=== PATIENT | female | born 1960 | race American Indian/Alaskan Native ===

== ENCOUNTER 2023-11-08 08:53 | Emergency (ER) | payer BC ==
[~2023-11-08] VITALS: Ht 165.1 cm; Wt 129.3 kg
[~2023-11-08 08:53] MED LIST: ACET500 PO; ASPI325EC PO; Abilify2 MG PO; CYCL10 PO; FAMO20 PO; OXYC5 PO; OXYMORPHONE HCL10 M1 PO; VIIBRYD40 MG PO
[2023-11-08 10:57] VITALS: BP 140/72
[2023-11-08 10:59] LABS: Hematocrit 34.5 % (33.0-51.0); Hemoglobin 11.4 g/dL (11.5-16.0); Mean Corpuscular HGB 30.1 pg (26.0-34.0); Mean Corpuscular Volume 91 fL (80-100); Platelet Count 331 K/mm3 (150-400); RDW Coefficient Variation 14.8 % (11.7-14.2); RDW Standard Deviation 49.3 fL (35.1-46.3); Red Blood Cell Count 3.79 M/mm3 (3.80-5.20)
[2023-11-08 11:02] LABS: Source, Urine Clean Catch
[2023-11-08 11:05] LABS: Appearance, Urine Cloudy (Clear); Bilirubin, Urine Neg (Neg); Blood, Urine Neg (Neg); Color, Urine Yellow (P-Yellow); Glucose Qualitative, Urine Neg (Neg); Ketones, Urine Neg (Neg); Leukocyte Esterase, Urine 2+ (Neg); Nitrite, Urine Neg (Neg); Protein, Urine 2+ (Neg); Urobilinogen, Urine NORM (Normal)
[2023-11-08 11:16] LABS: Amorphous Light (0-Heavy); Bacteria Few /hpf; Mucus Heavy (0-Heavy); Squamous Epithelial Cells Many /hpf (Few)
[2023-11-08 11:31] LABS: BAND PERCENT MAN 4 % (0-8); BASOPHILS PERCENT MAN 0 % (0-2); EOSINOPHILS ABSOLUTE MAN 0.42 K/mm3 (0.00-0.68); EOSINOPHILS PERCENT MAN 4 % (0-6); LYMPHOCYTES % ATYPICAL MANUAL 2 % (0-0); LYMPHOCYTES ABSOLUTE MAN 2.01 K/mm3 (0.84-5.20); LYMPHOCYTES PERCENT MAN 17 % (21-46); MONOCYTES ABSOLUTE MAN 0.63 K/mm3 (0.16-1.47); MONOCYTES PERCENT MAN 6 % (4-13); MYELOCYTE PERCENT MAN 1 % (0-0); NEUTROPHILS ABSOLUTE MAN 7.42 K/mm3 (1.96-9.15); SEG NEUTROPHILS PERCENT MAN 66 % (41-73); TOTAL CELLS COUNTED 100
[2023-11-08 11:38] LABS: Albumin, Blood 2.4 g/dL (3.4-5.0); Albumin/Globulin Ratio 0.5 (0.8-1.8); Bilirubin, Total 0.3 mg/dL (0.1-1.0); C-REACTIVE PROTEIN, EXT RANGE 6.64 mg/dL (0.000-0.300); Calcium, Blood 8.1 mg/dL (8.5-10.1); Creatinine, Blood 0.5 mg/dL (0.40-1.00); Globulin, Blood 4.5 g/dL (2.2-4.0); Potassium, Blood 3.9 mmol/L (3.5-5.5); Total Protein, Blood 6.9 g/dL (6.4-8.2)
== END 2023-11-08 13:17 | disposition home or self-care (01) ==
LOC: ER 08:53
PROVIDERS: Physician Assistant
DX: R23.4 Changes in skin texture (principal); L27.0 Generalized skin eruption due to drugs and medicaments taken internally; T45.1X5A Adverse effect of antineoplastic and immunosuppressive drugs, initial encounter; C84.A0 Cutaneous T-cell lymphoma, unspecified, unspecified site; R60.1 Generalized edema; Z91.041 Radiographic dye allergy status; Z88.8 Allergy status to other drugs, medicaments and biological substances; Z79.899 Other long term (current) drug therapy; Z79.82 Long term (current) use of aspirin
CPT/HCPCS: 51798; 80053; 81001; 83880; 85025; 86140; 87077; 87086; 87147; 87186; 93005; 93010; 99283-25

== ENCOUNTER → 2023-11-15 | Outpatient (CLI) | payer BC | END | disposition home or self-care (01) | LOC: LAB SHORT 16:46 | DX: L08.0 Pyoderma (principal) | CPT/HCPCS: 87070; 87077; 87147; 87186; 87205 ==

== ENCOUNTER → 2024-01-10 | Outpatient (CLI) | payer BC | END | disposition home or self-care (01) | LOC: LAB SHORT 12:07 → LAB 12:07 | DX: L08.0 Pyoderma (principal) | CPT/HCPCS: 87070; 87205 ==

== ENCOUNTER 2024-01-19 02:33 | Day surgery (SDC) | payer BC | END 2024-01-19 23:21 | disposition home or self-care (01) | LOC: WOUND 02:33 | DX: L89.893 Pressure ulcer of other site, stage 3 (principal); L89.312 Pressure ulcer of right buttock, stage 2; C84.A5 Cutaneous T-cell lymphoma, unspecified, lymph nodes of inguinal region and lower limb; C84.A1 Cutaneous T-cell lymphoma, unspecified lymph nodes of head, face, and neck; L97.512 Non-pressure chronic ulcer of other part of right foot with fat layer exposed; G47.30 Sleep apnea, unspecified; I10 Essential (primary) hypertension; Z88.8 Allergy status to other drugs, medicaments and biological substances | CPT/HCPCS: A6213; G0463 ==

== ENCOUNTER 2024-01-26 04:47 | Day surgery (SDC) | payer BC ==
[2024-01-26] MEDS ORDERED: Lidocaine HCl 4% Cream 5 GM ONE (10:57)
== END 2024-01-26 23:00 | disposition home or self-care (01) ==
LOC: WOUND 04:47
DX: L89.892 Pressure ulcer of other site, stage 2 (principal); L89.312 Pressure ulcer of right buttock, stage 2; L89.92 Pressure ulcer of unspecified site, stage 2; L97.512 Non-pressure chronic ulcer of other part of right foot with fat layer exposed
CPT/HCPCS: A6213; A9270; G0463

== ENCOUNTER → 2024-02-03 | Outpatient (CLI) | payer BC | END | disposition home or self-care (01) | LOC: LAB SHORT 15:55 → LAB 15:55 | DX: L08.0 Pyoderma (principal) | CPT/HCPCS: 87070; 87205 ==

== ENCOUNTER 2024-02-09 01:26 | Day surgery (SDC) | payer BC ==
[2024-02-09] MEDS ORDERED: Lidocaine HCl 4% Cream 5 GM ONE (10:50)
== END 2024-02-09 23:26 | disposition home or self-care (01) ==
LOC: WOUND 01:26
DX: C84.A8 Cutaneous T-cell lymphoma, unspecified, lymph nodes of multiple sites (principal); L89.892 Pressure ulcer of other site, stage 2; L89.312 Pressure ulcer of right buttock, stage 2
CPT/HCPCS: A9270; G0463

== ENCOUNTER 2024-02-15 01:17 | Day surgery (SDC) | payer BC | END 2024-02-15 23:00 | disposition home or self-care (01) | LOC: WOUND 01:17 | DX: L89.312 Pressure ulcer of right buttock, stage 2 (principal); L53.9 Erythematous condition, unspecified; S31.819D Unspecified open wound of right buttock, subsequent encounter; S91.109D Unspecified open wound of unspecified toe(s) without damage to nail, subsequent encounter; S01.301D Unspecified open wound of right ear, subsequent encounter; L97.512 Non-pressure chronic ulcer of other part of right foot with fat layer exposed; L97.522 Non-pressure chronic ulcer of other part of left foot with fat layer exposed; C84.00 Mycosis fungoides, unspecified site; X58.XXXD Exposure to other specified factors, subsequent encounter | CPT/HCPCS: A6213; G0463 ==

== ENCOUNTER 2024-02-22 01:22 | Day surgery (SDC) | payer BC | END 2024-02-22 23:00 | disposition home or self-care (01) | LOC: WOUND 01:22 | DX: C84.A8 Cutaneous T-cell lymphoma, unspecified, lymph nodes of multiple sites (principal); L97.516 Non-pressure chronic ulcer of other part of right foot with bone involvement without evidence of necrosis; L89.312 Pressure ulcer of right buttock, stage 2; L89.892 Pressure ulcer of other site, stage 2; I10 Essential (primary) hypertension; M19.90 Unspecified osteoarthritis, unspecified site; G47.30 Sleep apnea, unspecified; C84.00 Mycosis fungoides, unspecified site | CPT/HCPCS: A6213; G0463 ==

== ENCOUNTER 2024-03-14 00:57 | Day surgery (SDC) | payer BC | END 2024-03-14 23:31 | disposition home or self-care (01) | LOC: WOUND 00:57 | DX: L89.312 Pressure ulcer of right buttock, stage 2 (principal); L97.512 Non-pressure chronic ulcer of other part of right foot with fat layer exposed; L97.522 Non-pressure chronic ulcer of other part of left foot with fat layer exposed; L89.92 Pressure ulcer of unspecified site, stage 2; C84.00 Mycosis fungoides, unspecified site; L53.9 Erythematous condition, unspecified | CPT/HCPCS: A6213; G0463 ==

== ENCOUNTER 2024-03-21 04:27 | Day surgery (SDC) | payer BC ==
[2024-03-21] MEDS ORDERED: Miconazole Nitrate 2% 85 GM PWD ONE (08:12)
== END 2024-03-21 23:00 | disposition home or self-care (01) ==
LOC: WOUND 04:27
DX: L89.312 Pressure ulcer of right buttock, stage 2 (principal); L89.899 Pressure ulcer of other site, unspecified stage; L89.92 Pressure ulcer of unspecified site, stage 2; L97.512 Non-pressure chronic ulcer of other part of right foot with fat layer exposed; L97.522 Non-pressure chronic ulcer of other part of left foot with fat layer exposed; C84.00 Mycosis fungoides, unspecified site
CPT/HCPCS: A6213; A9270; G0463

== ENCOUNTER 2024-03-24 11:53 | Day surgery (SDC) | payer BC ==
[~2024-03-24] VITALS: Ht 165.1 cm; Wt 99.5 kg
[~2024-03-24 11:53] MED LIST changes: +Lactated Ringer's 1,000 ML IV ONE; +Ropivacaine 0.5% HCL/PF 5 MG/ML 30ML Vial ONE
[2024-03-24] MEDS ORDERED: LABE100 PO (12:29)
[2024-03-24] MEDS ORDERED: DOXY100 PO (12:29)
[2024-03-24] MEDS ORDERED: METTREX2.5 PO (12:30)
[2024-03-24] MEDS ORDERED: SPIR25 PO (12:30)
[2024-03-24] MEDS ORDERED: ABILIFY MYCITE10 M2 PO (12:30)
[2024-03-24] MEDS ORDERED: METPHE27ER PO (12:31)
[2024-03-24] MEDS ORDERED: PRED20 PO (12:31)
[2024-03-24] MEDS ORDERED: Pristiq100 MG PO (12:32)
[2024-03-24] MEDS ORDERED: POTA8 PO (12:32)
[2024-03-24] MEDS ORDERED: FOLI1 PO (12:32)
[2024-03-24] MEDS ORDERED: BUME2 PO (12:33)
[2024-03-24] MEDS ORDERED: CLONAZEPAM0.5 MG PO (12:33)
[2024-03-24] MEDS ORDERED: Lactated Ringer's 1,000 ML IV ONE (12:49)
[2024-03-24] MEDS ORDERED: CeFAZolin Sodium 2,000 MG VIAL ONE (12:52)
[2024-03-24] MEDS ORDERED: Scopolamine Hydrobromide Patch ONE (14:11)
[2024-03-24] MEDS ORDERED: propofoL 20 ML IV ONE (14:12)
[2024-03-24] MEDS ORDERED: FentaNYL Citrate 50 MCG/ML 2 ML Injection ONE (14:13)
[2024-03-24] MEDS ORDERED: Ondansetron HCl 2 MG / ML 2ML Vial ONE (14:16)
[2024-03-24] MEDS ORDERED: Ketorolac Tromethamine 30mg Vial ONE (14:16)
--- NOTE | 2024-03-24 14:35 | NUR ---
03/24/24 5522 Anitra Bey NOTED PT HAS MULTIPLE OPEN SORES ALL OVER HER BODY: NOTED ONE TO THE RIGHT GREAT TOE
[2024-03-24 15:35] VITALS: BP 144/74
== END 2024-03-24 15:58 | disposition home or self-care (01) ==
LOC: ORSCSDS 11:53
PROVIDERS: Podiatrist Foot & Ankle Surgery
PROC: 0Y6P0Z0 Detachment at Right 1st Toe, Complete, Open Approach (ICD-10-PCS; principal; 2024-03-24 14:15)
DX: M86.171 Other acute osteomyelitis, right ankle and foot (principal); I10 Essential (primary) hypertension; F41.9 Anxiety disorder, unspecified; G47.33 Obstructive sleep apnea (adult) (pediatric); F90.9 Attention-deficit hyperactivity disorder, unspecified type; F32.A Depression, unspecified; M79.7 Fibromyalgia; E66.9 Obesity, unspecified; Z68.36 Body mass index [BMI] 36.0-36.9, adult; Z79.899 Other long term (current) drug therapy; F17.290 Nicotine dependence, other tobacco product, uncomplicated
CPT/HCPCS: 88305; 88311; A9270; J0690; J1885; J2405; J2704; J2795; J3010; J7120

== ENCOUNTER 2024-03-28 01:34 | Day surgery (SDC) | payer BC ==
[~2024-03-28 01:34] MED LIST changes: +ABILIFY MYCITE10 M2 PO; +BUME2 PO; +CLONAZEPAM0.5 MG PO; +DOXY100 PO; +FOLI1 PO; +LABE100 PO; -Lactated Ringer's 1,000 ML IV ONE; +METPHE27ER PO; +METTREX2.5 PO; +POTA8 PO; +PRED20 PO; +Pristiq100 MG PO; -Ropivacaine 0.5% HCL/PF 5 MG/ML 30ML Vial ONE; +SPIR25 PO
== END 2024-03-29 23:00 | disposition home or self-care (01) ==
LOC: WOUND 01:34
DX: C84.A8 Cutaneous T-cell lymphoma, unspecified, lymph nodes of multiple sites (principal); L89.899 Pressure ulcer of other site, unspecified stage; L89.319 Pressure ulcer of right buttock, unspecified stage; L02.611 Cutaneous abscess of right foot; C84.00 Mycosis fungoides, unspecified site; Z89.411 Acquired absence of right great toe
CPT/HCPCS: A6213; G0463

== ENCOUNTER 2024-04-04 04:08 | Day surgery (SDC) | payer BC | END 2024-04-04 23:00 | disposition home or self-care (01) | LOC: WOUND 04:08 | DX: L89.312 Pressure ulcer of right buttock, stage 2 (principal); L89.92 Pressure ulcer of unspecified site, stage 2; L97.512 Non-pressure chronic ulcer of other part of right foot with fat layer exposed; L97.522 Non-pressure chronic ulcer of other part of left foot with fat layer exposed; C84.00 Mycosis fungoides, unspecified site; L53.9 Erythematous condition, unspecified | CPT/HCPCS: A6213; G0463 ==

== ENCOUNTER 2024-04-18 01:06 | Day surgery (SDC) | payer BC | END 2024-04-18 23:00 | disposition home or self-care (01) | LOC: WOUND 01:06 | DX: C84.A8 Cutaneous T-cell lymphoma, unspecified, lymph nodes of multiple sites (principal); S91.104D Unspecified open wound of right lesser toe(s) without damage to nail, subsequent encounter; X58.XXXD Exposure to other specified factors, subsequent encounter; L89.899 Pressure ulcer of other site, unspecified stage; Z89.411 Acquired absence of right great toe | CPT/HCPCS: G0463 ==

== ENCOUNTER 2024-04-25 05:55 | Day surgery (SDC) | payer BC | END 2024-04-25 23:00 | disposition home or self-care (01) | LOC: WOUND 05:55 | DX: C84.A8 Cutaneous T-cell lymphoma, unspecified, lymph nodes of multiple sites (principal); S91.104D Unspecified open wound of right lesser toe(s) without damage to nail, subsequent encounter; C84.00 Mycosis fungoides, unspecified site; Z89.411 Acquired absence of right great toe | CPT/HCPCS: A6213; G0463 ==

== ENCOUNTER 2024-05-02 08:16 | Day surgery (SDC) | payer BC | END 2024-05-02 23:00 | disposition home or self-care (01) | LOC: WOUND 08:16 | DX: L89.92 Pressure ulcer of unspecified site, stage 2 (principal); L97.526 Non-pressure chronic ulcer of other part of left foot with bone involvement without evidence of necrosis; L97.514 Non-pressure chronic ulcer of other part of right foot with necrosis of bone; L97.522 Non-pressure chronic ulcer of other part of left foot with fat layer exposed; C84.00 Mycosis fungoides, unspecified site; L53.9 Erythematous condition, unspecified | CPT/HCPCS: G0463 ==

== ENCOUNTER 2024-05-16 05:19 | Day surgery (SDC) | payer BC ==
[2024-05-16] MEDS ORDERED: Lidocaine HCl 4% Cream 5 GM ONE (07:37)
== END 2024-05-16 23:00 | disposition home or self-care (01) ==
LOC: WOUND 05:19
DX: C84.A8 Cutaneous T-cell lymphoma, unspecified, lymph nodes of multiple sites (principal); L02.611 Cutaneous abscess of right foot; S91.104D Unspecified open wound of right lesser toe(s) without damage to nail, subsequent encounter; X58.XXXD Exposure to other specified factors, subsequent encounter; Z89.411 Acquired absence of right great toe
CPT/HCPCS: A9270; G0463

== ENCOUNTER 2024-05-19 11:09 | Day surgery (SDC) | payer BC ==
[~2024-05-19] VITALS: Ht 165.1 cm; Wt 96.2 kg
[2024-05-19] MEDS ORDERED: CeFAZolin Sodium 2,000 MG VIAL ONE (11:37)
[2024-05-19] MEDS ORDERED: NS 50 ML IV ONE (11:38)
[2024-05-19] MEDS ORDERED: PRED1 PO (12:14)
[2024-05-19] MEDS ORDERED: FAMO40 (12:16)
[2024-05-19] MEDS ORDERED: Lactated Ringer's 1,000 ML IV ONE ×2 (12:19→13:37)
[2024-05-19] MEDS ORDERED: FentaNYL Citrate 50 MCG/ML 2 ML Injection ONE (12:37)
[2024-05-19] MEDS ORDERED: Dexamethasone Sod Phos 10 MG/ML 1ML VIAL ONE (12:37)
[2024-05-19] MEDS ORDERED: propofoL 20 ML IV ONE (12:37)
[2024-05-19] MEDS ORDERED: Ondansetron HCl 2 MG / ML 2ML Vial ONE (12:37)
[2024-05-19] MEDS ORDERED: Ketorolac Tromethamine 30mg Vial ONE (12:37)
--- NOTE | 2024-05-19 12:47 | NUR ---
05/19/24 1247 SWATHI MAN PATIENT RESTING ON GURNEY, IN LOW POSITION, RAILS UP, CALL LIGHT IN REACH
[2024-05-19] MEDS ORDERED: Scopolamine Hydrobromide Patch ONE (13:26)
[2024-05-19] MEDS ORDERED: Bupivacaine 0.5% Inj 50 ML Vial (NON CHARGE) INJ ONE (13:55)
[2024-05-19 14:23] VITALS: BP 156/65
--- NOTE | 2024-05-19 14:23 | NUR ---
05/19/24 1423 [place] 1415: PT ARRIVES TO SDU A&O, ON RA, VSS. PT DENIES PAIN/NAUSEA. DRESSING TO R FOOT C/D/I, POST-OP SHOE ON. NO VISIBLE SIGNS OF DISTRESS NOTED.
== END 2024-05-19 15:39 | disposition home or self-care (01) ==
LOC: ORSCSDS 11:09
PROVIDERS: Podiatrist Foot & Ankle Surgery
PROC: 0Y6P0Z0 Detachment at Right 1st Toe, Complete, Open Approach (ICD-10-PCS; principal; 2024-05-19 12:45)
DX: M86.171 Other acute osteomyelitis, right ankle and foot (principal); L03.011 Cellulitis of right finger; M20.41 Other hammer toe(s) (acquired), right foot; I10 Essential (primary) hypertension; E66.9 Obesity, unspecified; Z68.35 Body mass index [BMI] 35.0-35.9, adult; G62.9 Polyneuropathy, unspecified; Z79.899 Other long term (current) drug therapy
CPT/HCPCS: 88305; 88311; A9270; J0690; J1100; J1885; J2405; J2704; J3010; J7120

== ENCOUNTER 2024-05-24 05:54 | Day surgery (SDC) | payer BC ==
[~2024-05-24 05:54] MED LIST changes: +FAMO40 PO; +METHYLPHENIDATE54 MG PO; -METPHE27ER PO; +PRED1 PO
== END 2024-05-24 23:00 | disposition home or self-care (01) ==
LOC: WOUND 05:54
DX: L02.611 Cutaneous abscess of right foot (principal); C84.A8 Cutaneous T-cell lymphoma, unspecified, lymph nodes of multiple sites; Z89.421 Acquired absence of other right toe(s)
CPT/HCPCS: G0463

== ENCOUNTER 2024-06-07 08:40 | Inpatient (IN) | payer BC ==
[2024-06-07] VITALS (7 sets, daily range): BP systolic 91–119; BP diastolic 45–60
[~2024-06-07] VITALS: Ht 165.1 cm; Wt 103.2 kg
[2024-06-07 09:29] LABS: BASOPHILS PERCENT AUTO 1 % (0-2); EOSINOPHILS ABSOLUTE AUTO 0.01 K/mm3 (0.00-0.68); EOSINOPHILS PERCENT AUTO 0 % (0-6); Hematocrit 32.3 % (33.0-51.0); Hemoglobin 10.7 g/dL (11.5-16.0); IMMATURE GRAN ABSOLUTE AUTO 0.44 K/mm3 (0.00-0.10); IMMATURE GRAN PERCENT AUTO 3 % (0-1); LYMPHOCYTES ABSOLUTE AUTO 2.09 K/mm3 (0.84-5.20); LYMPHOCYTES PERCENT AUTO 12 % (21-46); MONOCYTES ABSOLUTE AUTO 0.54 K/mm3 (0.16-1.47); MONOCYTES PERCENT AUTO 3 % (4-13); Mean Corpuscular HGB 30.1 pg (26.0-34.0); Mean Corpuscular HGB Conc 33.1 g/dL (31.5-36.5); Mean Corpuscular Volume 91 fL (80-100); Mean Platelet Volume 8.4 fL (9.1-12.4); NEUTROPHILS ABSOLUTE AUTO 14.07 K/mm3 (1.96-9.15); NEUTROPHILS PERCENT AUTO 82 % (41-73); Platelet Count 324 K/mm3 (150-400); RDW Coefficient Variation 16.6 % (11.7-14.2); RDW Standard Deviation 54.7 fL (35.1-46.3); Red Blood Cell Count 3.56 M/mm3 (3.80-5.20); White Blood Cell Count 17.25 K/mm3 (4.00-11.30)
[2024-06-07] MEDS ORDERED: Lactated Ringer's 1,000 ML IV SCH ×2 (09:30→11:10)
[2024-06-07] MEDS ORDERED: Piperacillin/Tazobactam Sod 3.375 GM in NS 100 ML IV ONE (09:35)
[2024-06-07 09:49] LABS: Albumin, Blood 2.5 g/dL (3.4-5.0); Albumin/Globulin Ratio 0.5 (0.8-1.8); Bilirubin, Total 0.7 mg/dL (0.1-1.0); Bun/Creatinine Ratio 12.1 (12.0-20.0); Creatinine, Blood 2.23 mg/dL (0.40-1.00); Globulin, Blood 4.6 g/dL (2.2-4.0); Total Protein, Blood 7.1 g/dL (6.4-8.2)
[2024-06-07] MEDS ORDERED: Vancomycin HCL 2,000 MG in NS 520 ML IV ONE (10:15)
[2024-06-07] MEDS ORDERED: PNEUMOC 20-VAL CONJ-DIP CRM/PF 0.5 ML SYRINGE IM SCH (11:55)
[2024-06-07] MEDS ORDERED: FLU VACC TS2024-25(6MOS UP)/PF 45 MCG/0.5 ML SYRINGE IM SCH (11:55)
[2024-06-07 12:05] LABS: Source, Urine Clean Catch
[2024-06-07 12:49] LABS: Appearance, Urine Cloudy (Clear); Bilirubin, Urine Neg (Neg); Blood, Urine 2+ (Neg); Color, Urine Yellow (P-Yellow); Glucose Qualitative, Urine Neg (Neg); Ketones, Urine Neg (Neg); Leukocyte Esterase, Urine 3+ (Neg); Nitrite, Urine Neg (Neg); Protein, Urine 2+ (Neg); Specific Gravity, Urine 1.015 (1.003-1.022); Urobilinogen, Urine NORM (Normal)
[2024-06-07 13:35] LABS: Influenza A, PCR NEGATIVE (NEGATIVE); Influenza B, PCR NEGATIVE (NEGATIVE); Resp Syncytial Virus, PCR NEGATIVE (NEGATIVE); SARS-Cov-2 (COVID-19) PCR, MMC NEGATIVE (NEGATIVE)
--- NOTE | 2024-06-07 13:45 | NUR ---
REPORT RECIEVED FROM ER NURSE AT 2198.
[2024-06-07] MEDS ORDERED: NS 1,000 ML IV SCH ×2 (14:05→14:15)
[2024-06-07 14:11] LABS: Granular Casts 0-2 /lpf (0); Waxy Cast 0-2 /lpf (0); White Blood Cells, Urine 25-50 /hpf (0-5)
[2024-06-07 14:12] LABS: Bacteria Many /hpf; Renal Epithelial Few /hpf (0-Rare); Squamous Epithelial Cells Mod /hpf (Few); Transitional Epithelial Cells Few /hpf (0-Rare)
[2024-06-07 14:26] LABS: U Amphetamine Screen Not Detected; U Barbituate Screen Not Detected; U Benzodiazapine Screen Not Detected; U Buprenorphine Screen Not Detected; U Cannabinoids Screen Not Detected; U Cocaine Screen Not Detected; U Methadone Screen Not Detected; U Methamphetamine Screen Not Detected; U Opiates Screen DETECTED; U Oxycodone Screen DETECTED; U Phencyclidine Screen Not Detected
[2024-06-07 18:19] LABS: Bun/Creatinine Ratio 16.5 (12.0-20.0); Calcium, Blood 8.4 mg/dL (8.5-10.1); Creatinine, Blood 1.7 mg/dL (0.40-1.00); Potassium, Blood 3.8 mmol/L (3.5-5.5)
--- NOTE | 2024-06-07 18:29 | NUR ---
SHIFT SUMMARY PT A/OX2, CONFUSED. PT ABLE TO ANSWER SOME ORIENTATION QUESTIONS AFTER A COUPLE OF MINUTES, MOSTLY PT JUST REPEATS MULTIPLE TIMES THE WUESTION THAT WAS ASKED. PT BP'S SOFT SINCE ARRIVING TO UNIT. OTHER VSS SINCE ARRIVING TO UNIT. PT INITIALLY DENIED VISION PROBLEM, PT NOW REPORTING THAT VISION IS EXTREMLY BLURRY. PT ALSO REPORTS THAT HEARING "FELLS LIKE I NEED TO CLEAN MY EARS." PT STATED THAT IS SOUNDS THOUGH SOMEONE IS COVERING HER EARS. PT ANXIOUS ABOUT FUTURE DOCTOR VISITS. SON AT BEDSIDE AND INFORMED PT THAT APPOINTMENTS HAVE BEEN RESCHEDULED.
--- NOTE | 2024-06-07 20:51 | NUR ---
PT MOVED TO ROOM 08 FOR SAFETY
[2024-06-07] MEDS ORDERED: Meropenem 1,000 MG in NS 100 ML IV SCH (21:00)
[2024-06-07] MEDS ORDERED: Lactobacil 2-S.Thermo-Bifido 1 1 Cap PO SCH (21:00)
--- NOTE | 2024-06-07 23:30 | NUR ---
PT ATTEMPTED TO GET OUT OF BED, PULLED OUT IV AND TAKING OFF HER GOWN. PT ALERT AND ORIENTED, STATING SHE DID NOT KNOW WHY SHE WAS PULLING CLOTHES, IV, MOTITOR, ETC. PT BATHED, CLEAN SHEETS ON BED, NEW IV STARTED.PT EDUCATED ON NEED TO UTILIZE CALL LIGHT, BED ALARM IN PLACE. PT C/O BACK PAIN. MD NOTIFIED AND NEW ORDERS RECEIVED. PT GIVEN PRN PERCOCET, WILL CONTINUE TO MONITOR.
[2024-06-07] MEDS ORDERED: OxyCODONE 5 mg/Acetamin 325 mg TABLET PO PRN (23:50)
[2024-06-08 03:24] VITALS: BP 123/65
--- NOTE | 2024-06-08 04:02 | NUR ---
pt with gram + cocci in clusters, spoke with pharmacy, states pt is covered since they are on vanco, dr. mendoza notified
[2024-06-08 04:15] LABS: BASOPHILS ABSOLUTE AUTO 0.07 K/mm3 (0.00-0.23); BASOPHILS PERCENT AUTO 1 % (0-2); EOSINOPHILS ABSOLUTE AUTO 0.01 K/mm3 (0.00-0.68); EOSINOPHILS PERCENT AUTO 0 % (0-6); Hematocrit 29.6 % (33.0-51.0); Hemoglobin 9.6 g/dL (11.5-16.0); IMMATURE GRAN ABSOLUTE AUTO 0.39 K/mm3 (0.00-0.10); IMMATURE GRAN PERCENT AUTO 3 % (0-1); LYMPHOCYTES ABSOLUTE AUTO 2.38 K/mm3 (0.84-5.20); LYMPHOCYTES PERCENT AUTO 15 % (21-46); MONOCYTES ABSOLUTE AUTO 0.63 K/mm3 (0.16-1.47); MONOCYTES PERCENT AUTO 4 % (4-13); Mean Corpuscular HGB 29.6 pg (26.0-34.0); Mean Corpuscular HGB Conc 32.4 g/dL (31.5-36.5); Mean Corpuscular Volume 91 fL (80-100); Mean Platelet Volume 8.7 fL (9.1-12.4); NEUTROPHILS ABSOLUTE AUTO 12.01 K/mm3 (1.96-9.15); NEUTROPHILS PERCENT AUTO 77 % (41-73); Platelet Count 319 K/mm3 (150-400); RDW Coefficient Variation 16.7 % (11.7-14.2); RDW Standard Deviation 55.3 fL (35.1-46.3); Red Blood Cell Count 3.24 M/mm3 (3.80-5.20); White Blood Cell Count 15.49 K/mm3 (4.00-11.30)
[2024-06-08 04:46] LABS: Alanine Aminotransfer (ALT/SGP 29 U/L (12-78); Albumin/Globulin Ratio 0.5 (0.8-1.8); Alk Phos 122 U/L (50-136); Anion Gap 12 mmol/L (3-11); Aspartate Aminotrans (AST/SGOT 48 U/L (12-37); Bilirubin, Total 0.5 mg/dL (0.1-1.0); Blood Urea Nitrogen 24 mg/dL (8-24); Bun/Creatinine Ratio 24.5 (12.0-20.0); CO2, Blood 24 mmol/L (21-32); Chloride, Blood 103 mmol/L (98-108); Creatinine, Blood 0.98 mg/dL (0.40-1.00); Globulin, Blood 4.4 g/dL (2.2-4.0); Glomerular Filtration Rate 65 (60-); Glucose, Blood 93 mg/dL (70-99); Potassium, Blood 3.4 mmol/L (3.5-5.5); Sodium, Blood 136 mmol/L (136-145); Total Protein, Blood 6.4 g/dL (6.4-8.2)
[2024-06-08] MEDS ORDERED: Vancomycin HCL 1,500 MG in NS 250 ML IV SCH (08:00)
[2024-06-08] MEDS ORDERED: Potassium Chloride 10 Meq Tablet SA PO SCH (08:00)
[2024-06-08] MEDS ORDERED: Meropenem 1,000 MG in NS 100 ML IV SCH (08:00)
[2024-06-08 08:22] VITALS: BP 126/65
[2024-06-08] MEDS ORDERED: Miconazole Nitrate 2% 85 GM PWD TOP SCH (09:00)
[2024-06-08] MEDS ORDERED: Heparin Sodium 5000 Units/ML 1ML MDV SC SCH (09:00)
[2024-06-08] MEDS ORDERED: Enoxaparin 40 MG/0.4 ML SYR SC SCH ×2 (11:00→21:00)
[2024-06-08 11:34] VITALS: BP 147/71
[2024-06-08] MEDS ORDERED: OxyCODONE 5 mg/Acetamin 325 mg TABLET PO PRN (11:45)
--- NOTE | 2024-06-08 15:18 | NUR ---
PT TREE AND SHRUB WORKER CONTACTED AND INFORMED THAT PT WAS ADMITTED TO THE HOSPITAL. PT WAS SCHEDULED FOR APPOINTMENT FOR SUTURES TO BE REMVOED. TREE AND SHRUB WORKER INFORMED THIS RN TAHT SUTURES CAN REMAIN AT THIS TIME AND TO KEEP WOUND CLEAN AND DRY. SUTURES TO BE REMOVE AT A LATER DATE. PT UPDATED
--- NOTE | 2024-06-08 15:20 | NUR ---
PT MOVED FROM [facility] 8 TO [facility] 9 AT ROUGHLY 1300.
[2024-06-08 16:03] VITALS: BP 170/70
[2024-06-08 16:06] VITALS: BP 157/73
[2024-06-08] MEDS ORDERED: Acetaminophen 325 MG TABLET PO PRN (16:20)
--- NOTE | 2024-06-08 18:43 | NUR ---
SHIFT SUMMARY PT A/OX3-4, SOME SLIGHT CONFUSION AT TIMES. PT ABLE TO EXPRESS NEEDS AND CALLED APPROPIATE. PT REPORTED THAT VISION HAS GREATLY IMPROVED BUT NOT 100%, SOME BLURRINESS. PT ABLE TO READ CLOCK ON THE WALL AND IDENTIFY PEOPLE ON TV. PT REPORTED HEARING STILL MUFFLED. PT MENTATION IMPROVED SINCE YESTERDAY, PT ABLE TO ANSWER QUESTIONS PROMPTLY AND CORRECT. PT WITH FEVER THIS EVENING, SEE VITALS, TREATED PER EMAR. OTHER VSS THROUGHOUT SHIFT WITH O2 SATS IN PRINCESS 90'S ON RA. NO REPORT OF CHEST PAIN/PRESSURE. NO REPORT OF SOB. PT ABLE TO ROLL IN BED FOR USE OF BEDPAN.
[2024-06-08 19:59] VITALS: BP 140/73
[2024-06-08] MEDS ORDERED: Vancomycin HCL 1,000 MG in NS 250 ML IV SCH (20:00)
[2024-06-09] VITALS (8 sets, daily range): BP systolic 147–171; BP diastolic 64–86
[2024-06-09 04:33] LABS: BASOPHILS ABSOLUTE AUTO 0.07 K/mm3 (0.00-0.23); BASOPHILS PERCENT AUTO 1 % (0-2); EOSINOPHILS PERCENT AUTO 0 % (0-6); Hematocrit 28.3 % (33.0-51.0); Hemoglobin 9.4 g/dL (11.5-16.0); IMMATURE GRAN ABSOLUTE AUTO 0.32 K/mm3 (0.00-0.10); IMMATURE GRAN PERCENT AUTO 3 % (0-1); LYMPHOCYTES ABSOLUTE AUTO 2.64 K/mm3 (0.84-5.20); LYMPHOCYTES PERCENT AUTO 21 % (21-46); MONOCYTES ABSOLUTE AUTO 0.74 K/mm3 (0.16-1.47); MONOCYTES PERCENT AUTO 6 % (4-13); Mean Corpuscular HGB Conc 33.2 g/dL (31.5-36.5); Mean Corpuscular Volume 90 fL (80-100); Mean Platelet Volume 8.6 fL (9.1-12.4); NEUTROPHILS ABSOLUTE AUTO 8.98 K/mm3 (1.96-9.15); NEUTROPHILS PERCENT AUTO 71 % (41-73); Platelet Count 313 K/mm3 (150-400); RDW Coefficient Variation 16.5 % (11.7-14.2); RDW Standard Deviation 53.7 fL (35.1-46.3); Red Blood Cell Count 3.13 M/mm3 (3.80-5.20); White Blood Cell Count 12.75 K/mm3 (4.00-11.30)
--- NOTE | 2024-06-09 04:33 | NUR ---
SHIFT SUMMARY. SHIFT HAS BEEN UNREMARKABLE. PT AOX4, PLEASANT, COOPERATIVE, ABLE TO MAKE NEEDS KNOWN. HAS BEEN ABLE TO REST COMFORTABLY THROUGHOUT MOST OF SHIFT. PAIN ADEQUATELY MANAGED VIA EMAR. FLUIDS INFUSING THROUGHOUT SHIFT. VITALS STABLE. MILDLY ELEVATED BP THIS MORNING THAT HAS SINCE COME DOWN WITHOUT INTERVENTION INTO NORMAL RANGE. PUREWICK IN PLACE THROUGHOUT SHIFT, URINE OUTPUT CHARTED APPROPRIATELY. SHIFT OTHERWISE UNREMARKABLE. BED LOCKED IN LOWEST POSITION. CALL LIGHT LEFT WITHIN REACH. CONTINUING TO MONITOR.
[2024-06-09 05:00] LABS: Albumin, Blood 1.9 g/dL (3.4-5.0); Albumin/Globulin Ratio 0.5 (0.8-1.8); Bilirubin, Total 0.3 mg/dL (0.1-1.0); Bun/Creatinine Ratio 28.8 (12.0-20.0); Creatinine, Blood 0.45 mg/dL (0.40-1.00); Globulin, Blood 4.1 g/dL (2.2-4.0); Potassium, Blood 3.8 mmol/L (3.5-5.5)
[2024-06-09] MEDS ORDERED: ARIPiprazole 10 MG Tab PO SCH (09:00)
[2024-06-09] MEDS ORDERED: Losartan Potassium 25 MG Tab PO SCH (09:00)
[2024-06-09] MEDS ORDERED: Venlafaxine HCl 75 MG CapCR PO SCH (09:00)
[2024-06-09] MEDS ORDERED: CefTRIAXone Sodium 1,000 MG in NS 100 ML IV SCH (09:00)
[2024-06-09] MEDS ORDERED: Vancomycin HCL 1,000 MG in NS 250 ML IV ONE (10:30)
[2024-06-09] MEDS ORDERED: FentaNYL Citrate 50 MCG/ML 2 ML Injection IV SCH (12:00)
[2024-06-09] MEDS ORDERED: FentaNYL Citrate 50 MCG/ML 2 ML Injection IV PRN (12:05)
[2024-06-09] MEDS ORDERED: CeFAZolin Sodium 1,000 MG in NS 50 ML IV SCH (13:30)
--- NOTE | 2024-06-09 14:00 | NUR ---
RIGHT SHOULDER NOTED TO HAVE A REDNESS ONTOP. PT REPORTED THAT THE RIGHT SHOULDER HAS PAIN THIS RNWAS FEELING SKIN TEMP. SKIN HOT TO THE TOUCH.
--- NOTE | 2024-06-09 18:04 | NUR ---
SHIFT SHUMMARY PT A/OX4 AND COOPERATIVE OF CARE. PT ABLE TO EXPRESS NEEDS AND CALLS APPROPIATE. PT UP TO RECLINER TODAY WITH PHYSICAL THERAPY, SEE THERAPIST NOTES. PT TOLERATED RECLINER FOR SHORT PERIOD DUE TO LOWER BACK PAIN. PT TRANSFERED BACK TO BED VIA FWW/GB 1 PER ASSIST, TOERATED WELL. POST SURGICAL BOOT PROVIDED FOR WHEN UP IN ROOM, FULL WEIGHT BEARING PER ONLINE MERCHANDISING MANAGER POST NOTE ORDER. PT VISION IMROVED BUT HEARING STILL REPORTED TO BE MUFFLED. MD NOTIFIED OF RED SPOT WITH TENDERNES AND HOT TO TOUCH ON PT'S RIGHT SHOULDER, MD TO BEDSIDE FOR ASSESSMENT THIS SHIFT. PT VSS THROGUHOUT SHIFT WITH O2 SATS IN THE 90'S ON RA. NO REPORT OF CHEST PAIN/PRESSURE. NO REPORT OF SOB/DYSPNEA.. PT SON AT BEDSIDE A COUPLE TIMES THIS SHIFT AND UPDATED.
[2024-06-09] MEDS ORDERED: Vancomycin HCL 2,000 MG in NS 500 ML IV SCH (22:00)
[2024-06-10] VITALS (9 sets, daily range): BP systolic 150–186; BP diastolic 58–86
--- NOTE | 2024-06-10 04:35 | NUR ---
SHIFT SUMMARY. SHIFT HAS GONE WELL OVERALL. PT AOX4, PLEASANT, COOPERATIVE WITH CARE, ABLE TO MAKE NEEDS KNOWN. PT HAS BEEN ABLE TO REST COMFORTABLY THROUGHOUT MOST OF SHIFT. PAIN HAS BEEN ADEQUATELY MANAGED VIA EMAR. VITALS HAVE BEEN STABLE OUTSIDE OF SOMEWHAT ELEVATED BP THIS MORNING. CONTINUES TO RUN SINUS ON TELE, RATE SETTLING IN THE 70s-80s RANGE OVERNIGHT. PUREWICK IN PLACE, FUNCTIONING WELL. BED LOCKED IN LOWEST POSITION. CALL LIGHT LEFT WITHIN REACH. CONTINUING TO MONITOR.
--- NOTE | 2024-06-10 04:44 | NUR ---
SPOKE WITH DR. HUFF REGARDING ELEVATED BP. ORDERED 5 MG IV HYDRALAZINE FOR SBP >180 OR DBP >110 Q6P. DIRECTED TO NOT INTERVENE WITH BP GIVEN CURRENT MEASUREMENTS UNLESS BP CONTINUES TO TREND UP. ORDERS INPUT.
[2024-06-10] MEDS ORDERED: HydrALAZINE HCl 20 MG / ML 1ML Vial IV PRN (04:45)
[2024-06-10 05:04] LABS: BASOPHILS ABSOLUTE AUTO 0.06 K/mm3 (0.00-0.23); BASOPHILS PERCENT AUTO 1 % (0-2); EOSINOPHILS ABSOLUTE AUTO 0.01 K/mm3 (0.00-0.68); EOSINOPHILS PERCENT AUTO 0 % (0-6); Hematocrit 29.8 % (33.0-51.0); Hemoglobin 9.7 g/dL (11.5-16.0); IMMATURE GRAN ABSOLUTE AUTO 0.42 K/mm3 (0.00-0.10); IMMATURE GRAN PERCENT AUTO 4 % (0-1); LYMPHOCYTES ABSOLUTE AUTO 2.64 K/mm3 (0.84-5.20); LYMPHOCYTES PERCENT AUTO 23 % (21-46); MONOCYTES ABSOLUTE AUTO 0.83 K/mm3 (0.16-1.47); MONOCYTES PERCENT AUTO 7 % (4-13); Mean Corpuscular HGB 29.6 pg (26.0-34.0); Mean Corpuscular HGB Conc 32.6 g/dL (31.5-36.5); Mean Corpuscular Volume 91 fL (80-100); Mean Platelet Volume 8.8 fL (9.1-12.4); NEUTROPHILS ABSOLUTE AUTO 7.53 K/mm3 (1.96-9.15); NEUTROPHILS PERCENT AUTO 66 % (41-73); Platelet Count 314 K/mm3 (150-400); RDW Coefficient Variation 16.7 % (11.7-14.2); RDW Standard Deviation 54.2 fL (35.1-46.3); Red Blood Cell Count 3.28 M/mm3 (3.80-5.20); White Blood Cell Count 11.49 K/mm3 (4.00-11.30)
[2024-06-10 05:40] LABS: Albumin, Blood 1.9 g/dL (3.4-5.0); Albumin/Globulin Ratio 0.4 (0.8-1.8); Bilirubin, Total 0.3 mg/dL (0.1-1.0); Bun/Creatinine Ratio 18.1 (12.0-20.0); Calcium, Blood 8.3 mg/dL (8.5-10.1); Creatinine, Blood 0.39 mg/dL (0.40-1.00); Globulin, Blood 4.3 g/dL (2.2-4.0); Potassium, Blood 3.6 mmol/L (3.5-5.5); Total Protein, Blood 6.2 g/dL (6.4-8.2)
[2024-06-10] MEDS ORDERED: Labetalol HCL 100 MG TAB PO SCH (09:00)
[2024-06-10 10:37] LABS: Vancomycin, Trough 16.9 ug/mL (5.0-10.0)
--- NOTE | 2024-06-10 18:18 | NUR ---
SHIFT NOTE: PT A/OX4 COOPERATIVE WITH CARE. SHE IS ON RA WITH NO REPORTS OF SOB. SHE IS IN SINUS WITH RATES IN THE 80S. HOME DOSE OF LABATALOL STARTED TODAY TO MANAGE HIGH BPS. BACK PAIN MANAGED WITH PAIN MEDS PER EMAR. 1P ASSIST TO THE BEDSIDE COMMODE. SHE CALLS APPROPRIATELY. NS AND ANTIBIOTICS INFUSING PER EMAR. CARE CONTINUES
[2024-06-11 03:38] VITALS: BP 153/80
[2024-06-11 04:27] LABS: BASOPHILS ABSOLUTE AUTO 0.06 K/mm3 (0.00-0.23); BASOPHILS PERCENT AUTO 1 % (0-2); EOSINOPHILS ABSOLUTE AUTO 0.03 K/mm3 (0.00-0.68); EOSINOPHILS PERCENT AUTO 0 % (0-6); Hematocrit 27.9 % (33.0-51.0); IMMATURE GRAN ABSOLUTE AUTO 0.45 K/mm3 (0.00-0.10); IMMATURE GRAN PERCENT AUTO 4 % (0-1); LYMPHOCYTES ABSOLUTE AUTO 2.42 K/mm3 (0.84-5.20); LYMPHOCYTES PERCENT AUTO 24 % (21-46); MONOCYTES ABSOLUTE AUTO 0.95 K/mm3 (0.16-1.47); MONOCYTES PERCENT AUTO 9 % (4-13); Mean Corpuscular HGB 29.2 pg (26.0-34.0); Mean Corpuscular HGB Conc 32.3 g/dL (31.5-36.5); Mean Corpuscular Volume 91 fL (80-100); Mean Platelet Volume 8.8 fL (9.1-12.4); NEUTROPHILS ABSOLUTE AUTO 6.39 K/mm3 (1.96-9.15); NEUTROPHILS PERCENT AUTO 62 % (41-73); Platelet Count 291 K/mm3 (150-400); RDW Coefficient Variation 16.7 % (11.7-14.2); RDW Standard Deviation 53.8 fL (35.1-46.3); Red Blood Cell Count 3.08 M/mm3 (3.80-5.20)
--- NOTE | 2024-06-11 04:30 | NUR ---
SHIFT SUMMARY. SHIFT HAS BEEN UNREMARKABLE. PT AOX4, PLEASANT, COOPERATIVE WITH CARE, ABLE TO MAKE NEEDS KNOWN. HAS BEEN ABLE TO REST COMFORTABLY THROUGHOUT MOST OF SHIFT. PAIN ADEQUATELY MANAGED VIA EMAR. VITALS STABLE OUTSIDE OF MILD HYPERTENSION AT TIMES, BELOW PARAMETERS FOR MANAGEMENT VIA EMAR. STEADY 1PA TRANSFER TO [facility] [place]. FLUIDS INFUSING THROUGHOUT SHIFT. MAINTAINS ADEQUATE SATURATION ON ROOM AIR. BED LOCKED IN LOWEST POSITION. CALL LIGHT LEFT WITHIN REACH. CONTINUING TO MONITOR.
[2024-06-11 05:01] LABS: Albumin, Blood 1.8 g/dL (3.4-5.0); Albumin/Globulin Ratio 0.4 (0.8-1.8); Bilirubin, Total 0.3 mg/dL (0.1-1.0); Bun/Creatinine Ratio 14.4 (12.0-20.0); Calcium, Blood 8.2 mg/dL (8.5-10.1); Creatinine, Blood 0.42 mg/dL (0.40-1.00); Globulin, Blood 4.1 g/dL (2.2-4.0); Potassium, Blood 3.6 mmol/L (3.5-5.5); Total Protein, Blood 5.9 g/dL (6.4-8.2)
[2024-06-11 08:00] VITALS: BP 172/69
--- NOTE | 2024-06-11 08:00 | NUR ---
[place] of care: Resting in bed with no complaints. Alert, oriented, pleasant. In NSR with SBP 170. On room air with stable oxygen saturations. PIV in place with NS @ 75 cc/hr infusing. Will continue to monitor.
[2024-06-11] MEDS ORDERED: ZANAFLEX413 PO ×2 (08:45)
[2024-06-11] MEDS ORDERED: FOLI1 PO (08:46)
[2024-06-11] MEDS ORDERED: Losartan Potassium 50 MG Tab PO SCH (09:00)
[2024-06-11] MEDS ORDERED: Spironolactone 25 MG Tab PO SCH (09:00)
[2024-06-11 11:09] VITALS: BP 147/63
[2024-06-11] MEDS ORDERED: FentaNYL Citrate 50 MCG/ML 2 ML Injection IV PRN (12:35)
[2024-06-11 14:56] VITALS: BP 140/64
[2024-06-11 17:01] VITALS: BP 158/63
--- NOTE | 2024-06-11 18:17 | NUR ---
SHIFT SUMMARY PT TRANSFERED FROM PCU 9 TO ROOM 303. PT NOTED TO BE A&O X4 AND ASSIST X1 WITH TRANSFERES. PT NOTED TO HAVE AMBUTAION TO 1ST 2ND TOE ON RIGHT FOOT PT NOTED TO CONT TO HAVE [address]. PT IS TO HAVE A MRI DONE [employer] DEVELOPER CALLED AND SAID THEY ARE UNABLE TO DO IT TODAY THEY ARE NEEDING INFORMATION ON WHERE PT HAD A GASTRIC SLEEVE PT STATED SHE HAD IT DONE AT [facility] IN 2018. PT REMAINS IN ISO PRECAUTION FOR MRS.
[2024-06-11 19:41] VITALS: BP 168/75
--- NOTE | 2024-06-12 04:10 | NUR ---
SHIFT SUMMARY PATIENT HAS APPEARED TO BE SLEEPING COMFORTABLY TONIGHT. SHE HAS BEEN MEDICATED X1 ON THIS SHIFT FOR BACK PAIN WITH PERCOCET. VANCOMYCIN AND ANCEF HAVE INFUSED WITHOUT COMPLICATIONS. VITAL SIGNS HAVE BEEN STABLE. PATIENT HAS HER CALL LIGHT WITHIN REACH. SHE IS ORIENTED X4. BED ALARM IS SET. SAFETY PRECAUTIONS ARE BEING MAINTAINED.
[2024-06-12 04:11] VITALS: BP 164/67
[2024-06-12 05:26] LABS: Hematocrit 29.2 % (33.0-51.0); Hemoglobin 9.4 g/dL (11.5-16.0); Mean Corpuscular HGB 29.7 pg (26.0-34.0); Mean Corpuscular HGB Conc 32.2 g/dL (31.5-36.5); Mean Corpuscular Volume 92 fL (80-100); Mean Platelet Volume 8.9 fL (9.1-12.4); Platelet Count 318 K/mm3 (150-400); RDW Coefficient Variation 16.9 % (11.7-14.2); RDW Standard Deviation 56.2 fL (35.1-46.3); Red Blood Cell Count 3.17 M/mm3 (3.80-5.20); White Blood Cell Count 11.62 K/mm3 (4.00-11.30)
[2024-06-12 05:58] LABS: Bun/Creatinine Ratio 16.3 (12.0-20.0); Calcium, Blood 8.2 mg/dL (8.5-10.1); Creatinine, Blood 0.37 mg/dL (0.40-1.00); Potassium, Blood 3.5 mmol/L (3.5-5.5)
[2024-06-12 06:04] LABS: BASOPHILS ABSOLUTE MAN 0.11 K/mm3 (0.00-0.23); BASOPHILS PERCENT MAN 1 % (0-2); EOSINOPHILS ABSOLUTE MAN 0.11 K/mm3 (0.00-0.68); EOSINOPHILS PERCENT MAN 1 % (0-6); LYMPHOCYTES ABSOLUTE MAN 2.09 K/mm3 (0.84-5.20); LYMPHOCYTES PERCENT MAN 18 % (21-46); METAMYELOCYTE ABSOLUTE MAN 0.58 K/mm3 (0.00-0.00); METAMYELOCYTE PERCENT MAN 5 % (0-0); MONOCYTES ABSOLUTE MAN 1.39 K/mm3 (0.16-1.47); MONOCYTES PERCENT MAN 12 % (4-13); NEUTROPHILS ABSOLUTE MAN 7.32 K/mm3 (1.96-9.15); SEG NEUTROPHILS PERCENT MAN 63 % (41-73); TOTAL CELLS COUNTED 100
[2024-06-12 07:42] VITALS: BP 173/71
[2024-06-12] MEDS ORDERED: Torsemide 20 MG TAB PO SCH (09:00)
[2024-06-12 09:34] LABS: Vancomycin, Trough 24.3 ug/mL (5.0-10.0)
[2024-06-12] MEDS ORDERED: Vancomycin HCL 1,500 MG in NS 250 ML IV SCH ×2 (10:00→20:00)
[2024-06-12] MEDS ORDERED: Losartan Potassium 50 MG Tab PO ONE (12:00)
[2024-06-12] MEDS ORDERED: Potassium Chloride 20 MEQ TabCR PO SCH (12:00)
[2024-06-12 15:19] VITALS: BP 166/69
--- NOTE | 2024-06-12 18:40 | NUR ---
SHIFT SUMMARY PT CONT LEVEL OF CARE. LAB CALL TO NOTIFY OF + BLOOD CULTURES X2 PHYSICIAN NOTIFIED WITH NO NEW ORDERS AT THIS TIME. PT HAD MRI OF R FOOT CONT TO AWAIT RESULTS.
[2024-06-12 19:20] VITALS: BP 144/64
[2024-06-13] VITALS (16 sets, daily range): BP systolic 142–190; BP diastolic 53–82
[2024-06-13 05:01] LABS: Hemoglobin 9.2 g/dL (11.5-16.0); Mean Corpuscular HGB 29.7 pg (26.0-34.0); Mean Corpuscular HGB Conc 32.9 g/dL (31.5-36.5); Mean Corpuscular Volume 90 fL (80-100); Mean Platelet Volume 8.9 fL (9.1-12.4); Platelet Count 345 K/mm3 (150-400); RDW Coefficient Variation 17.1 % (11.7-14.2); RDW Standard Deviation 55.7 fL (35.1-46.3); White Blood Cell Count 11.79 K/mm3 (4.00-11.30)
[2024-06-13 05:36] LABS: Albumin, Blood 2.1 g/dL (3.4-5.0); Albumin/Globulin Ratio 0.5 (0.8-1.8); Bilirubin, Total 0.3 mg/dL (0.1-1.0); Bun/Creatinine Ratio 13.5 (12.0-20.0); Calcium, Blood 8.2 mg/dL (8.5-10.1); Creatinine, Blood 0.45 mg/dL (0.40-1.00); Globulin, Blood 4.5 g/dL (2.2-4.0); Potassium, Blood 3.3 mmol/L (3.5-5.5); Total Protein, Blood 6.6 g/dL (6.4-8.2)
--- NOTE | 2024-06-13 05:48 | NUR ---
SHIFT SUMMARY PATIENT HAS APPEARED TO SLEEP COMFORTABLY TONIGHT. SHE HAS HAD PERCOCET X1 ON THIS SHIFT FOR BACK PAIN. IV ABX HAVE INFUSED WITHOUT COMPLICATIONS. PATIENT IS ORIENTED X4. SHE HAS HER CALL LIGHT WITHIN REACH. SAFETY PRECAUTIONS ARE BEING MAINTAINED.
[2024-06-13 06:30] LABS: BAND PERCENT MAN 1 % (0-8); BASOPHILS PERCENT MAN 0 % (0-2); EOSINOPHILS PERCENT MAN 0 % (0-6); LYMPHOCYTES % ATYPICAL MANUAL 1 % (0-0); LYMPHOCYTES PERCENT MAN 27 % (21-46); METAMYELOCYTE ABSOLUTE MAN 0.11 K/mm3 (0.00-0.00); METAMYELOCYTE PERCENT MAN 1 % (0-0); MONOCYTES ABSOLUTE MAN 0.82 K/mm3 (0.16-1.47); MONOCYTES PERCENT MAN 7 % (4-13); MYELOCYTE ABSOLUTE MAN 0.35 K/mm3 (0.00-0.00); MYELOCYTE PERCENT MAN 3 % (0-0); NEUTROPHILS ABSOLUTE MAN 7.19 K/mm3 (1.96-9.15); SEG NEUTROPHILS PERCENT MAN 60 % (41-73); TOTAL CELLS COUNTED 100
[2024-06-13] MEDS ORDERED: Losartan Potassium 50 MG Tab PO SCH (09:00)
[2024-06-13] MEDS ORDERED: NS 250 ML IV PRN (13:05)
[2024-06-13] MEDS ORDERED: Lactated Ringer's 1,000 ML IV SCH (15:40)
[2024-06-13] MEDS ORDERED: propofoL 20 ML IV ONE (15:53)
[2024-06-13] MEDS ORDERED: Bupivacaine 0.5% HCl 5 MG/ML 30MLVIAL ONE (15:57)
[2024-06-13] MEDS ORDERED: Lidocaine HCl 1% 30 ML SDV ONE (15:57)
[2024-06-13] MEDS ORDERED: Scopolamine Hydrobromide Patch TOP ONE (16:15)
[2024-06-13] MEDS ORDERED: FentaNYL Citrate 50 MCG/ML 2 ML Injection ONE ×2 (16:29→17:46)
[2024-06-13] MEDS ORDERED: Dexamethasone Sod Phos 10 MG/ML 1ML VIAL ONE (16:32)
[2024-06-13] MEDS ORDERED: Ondansetron HCl 2 MG / ML 2ML Vial ONE (16:32)
[2024-06-13] MEDS ORDERED: Nystatin 100,000 Unit/ML Susp 5 ML UDC SS SCH (17:00)
[2024-06-13] MEDS ORDERED: FentaNYL Citrate 50 MCG/ML 2 ML Injection IV PRN (17:20)
[2024-06-13] MEDS ORDERED: HYDROmorphone HCl/Pf 1MG SYR IV PRN (17:20)
[2024-06-13] MEDS ORDERED: Ondansetron HCl 2 MG / ML 2ML Vial IV PRN (17:20)
[2024-06-13] MEDS ORDERED: Albuterol 2.5 MG/3 ML VIAL INH PRN (17:20)
[2024-06-13] MEDS ORDERED: HYDROmorphone HCl/Pf 1MG SYR ONE (17:42)
--- NOTE | 2024-06-13 18:14 | NUR ---
SHIFT SUMMARY PT AOX4, MAKES NEEDS KNOWN. MEDICATED FOR PAIN PER THE EMAR. REPOSITIONED THROUGHOUT THE SHIFT. MEPALEX APPLIED TO COCCYX. BED BATH DONE. PT CURRENTLY RETURNINGS FROM PROCEDURE TO R FOOT. CALL LIGHT WITHIN REACH, BED LOCKED AND IN THE LOWEST POSITION. WILL REPORT TO ONCOMING NURSE.
[2024-06-14 03:09] VITALS: BP 153/68
[2024-06-14 07:07] LABS: BASOPHILS ABSOLUTE AUTO 0.04 K/mm3 (0.00-0.23); BASOPHILS PERCENT AUTO 0 % (0-2); EOSINOPHILS PERCENT AUTO 0 % (0-6); Hematocrit 29.1 % (33.0-51.0); Hemoglobin 9.4 g/dL (11.5-16.0); IMMATURE GRAN ABSOLUTE AUTO 0.25 K/mm3 (0.00-0.10); IMMATURE GRAN PERCENT AUTO 3 % (0-1); LYMPHOCYTES PERCENT AUTO 19 % (21-46); MONOCYTES PERCENT AUTO 4 % (4-13); Mean Corpuscular HGB 29.7 pg (26.0-34.0); Mean Corpuscular HGB Conc 32.3 g/dL (31.5-36.5); Mean Corpuscular Volume 92 fL (80-100); Mean Platelet Volume 8.6 fL (9.1-12.4); NEUTROPHILS ABSOLUTE AUTO 6.61 K/mm3 (1.96-9.15); NEUTROPHILS PERCENT AUTO 74 % (41-73); Platelet Count 357 K/mm3 (150-400); RDW Coefficient Variation 17.1 % (11.7-14.2); RDW Standard Deviation 56.6 fL (35.1-46.3); Red Blood Cell Count 3.17 M/mm3 (3.80-5.20)
[2024-06-14 07:37] LABS: Alanine Aminotransfer (ALT/SGP 18 U/L (12-78); Albumin, Blood 2.1 g/dL (3.4-5.0); Albumin/Globulin Ratio 0.4 (0.8-1.8); Alk Phos 212 U/L (50-136); Anion Gap 6 mmol/L (3-11); Aspartate Aminotrans (AST/SGOT 19 U/L (12-37); Bilirubin, Total 0.2 mg/dL (0.1-1.0); Blood Urea Nitrogen 9 mg/dL (8-24); Bun/Creatinine Ratio 19.9 (12.0-20.0); CO2, Blood 33 mmol/L (21-32); Calcium, Blood 8.9 mg/dL (8.5-10.1); Chloride, Blood 103 mmol/L (98-108); Creatinine, Blood 0.45 mg/dL (0.40-1.00); Globulin, Blood 4.7 g/dL (2.2-4.0); Glomerular Filtration Rate 108 (60-); Glucose, Blood 137 mg/dL (70-99); Potassium, Blood 4.2 mmol/L (3.5-5.5); Sodium, Blood 138 mmol/L (136-145); Total Protein, Blood 6.8 g/dL (6.4-8.2); Vancomycin, Trough 20.3 ug/mL (5.0-10.0)
[2024-06-14 07:46] VITALS: BP 175/76
--- NOTE | 2024-06-14 07:48 | NUR ---
NOTE: NOTIFIED DR. BASURTO OF CRITICAL VANCO TROUGH VALUE. NO NEW ORDERS AT THIS TIME.
--- NOTE | 2024-06-14 07:49 | NUR ---
SHIFT SUMMARY PT PLEASANT AND COOPERATIVE WITH CARE. MEDS ADMINISTERED PER EMAR. SLEPT WELL THROUGH NIGHT. PT CONCERNED ABOUT DIURESEING MORE TODAY. PT UNDERSTANDS THE IMPORTANCE OF DOING SO. WILL CONTINUE TO MONITOR. PASSING ON TO DAY NURSE.
[2024-06-14] MEDS ORDERED: Vancomycin HCL 1,250 MG in NS 250 ML IV SCH (09:00)
[2024-06-14] MEDS ORDERED: OxyCODONE 5 mg/Acetamin 325 mg TABLET PO PRN (15:00)
[2024-06-14] MEDS ORDERED: Naloxone HCl 0.4MG / ML 1ML Vial IV PRN (15:00)
[2024-06-14 15:57] VITALS: BP 145/53
--- NOTE | 2024-06-14 18:04 | NUR ---
SHIFT SUMMARY PT AOX4, CALLS AND MAKES HER NEEDS KNOWN. 1 ASSIST WITH THE FWW TO THE BSC. MEDICATED FOR PAIN PER THE EMAR. DRESSING CHANGE TO R FOOT COMPLETED BY DR. WYNNE, HE SAID HE WOULD CHANGE THE DRESSING AGAIN HIMSELF TOMORROW. NO OTHER COMPLAINTS FROM THE PT. POSSIBLE DC WEDNESDAY, PT IS AWARE. REPOSITIONED THROUGHOUT THE SHIFT. PT IS CONTINENT. CALL LIGHT WITHIN REACH, BED LOCKED AND IN THE LOWEST POSITION. WILL REPORT TO ONCOMING NURSE.
[2024-06-14 19:24] VITALS: BP 164/62
[2024-06-15 04:09] VITALS: BP 139/60
--- NOTE | 2024-06-15 06:22 | NUR ---
SHIFT SUMMARY - NO ACUTE CHANGES THROUGHOUT THE NIGHT. PT HAS A CONTINUOUS BIOX ON - HEART RATE DROPPED TO MID TO UPPER 40'S X2 WHILE PT WAS SLEEPING. PT AWOKE TO VERBAL COMMUNICATION AND HEART RATE REBOUNDED TO LOW 60'S WITH BOTH EPISODES. PT DENIED ANY COMPLAINTS - STATED SHE "WAS FINE." PT WAS ABLE TO WIGGLE HER TOES TO HER RIGHT FOOT - DRESSING CD&I. CALL LIGHT WITHIN REACH. BED IN LOW POSITION. FLUIDS AT BEDSIDE. WILL REPORT OFF TO ONCOMING SHIFT.
[2024-06-15 06:54] LABS: BASOPHILS ABSOLUTE AUTO 0.06 K/mm3 (0.00-0.23); BASOPHILS PERCENT AUTO 1 % (0-2); EOSINOPHILS ABSOLUTE AUTO 0.08 K/mm3 (0.00-0.68); EOSINOPHILS PERCENT AUTO 1 % (0-6); Hematocrit 28.7 % (33.0-51.0); Hemoglobin 9.3 g/dL (11.5-16.0); IMMATURE GRAN ABSOLUTE AUTO 0.17 K/mm3 (0.00-0.10); IMMATURE GRAN PERCENT AUTO 2 % (0-1); LYMPHOCYTES ABSOLUTE AUTO 3.09 K/mm3 (0.84-5.20); LYMPHOCYTES PERCENT AUTO 33 % (21-46); MONOCYTES PERCENT AUTO 8 % (4-13); Mean Corpuscular HGB 29.9 pg (26.0-34.0); Mean Corpuscular HGB Conc 32.4 g/dL (31.5-36.5); Mean Corpuscular Volume 92 fL (80-100); Mean Platelet Volume 8.9 fL (9.1-12.4); NEUTROPHILS ABSOLUTE AUTO 5.25 K/mm3 (1.96-9.15); NEUTROPHILS PERCENT AUTO 56 % (41-73); Platelet Count 427 K/mm3 (150-400); RDW Coefficient Variation 17.3 % (11.7-14.2); RDW Standard Deviation 57.7 fL (35.1-46.3); Red Blood Cell Count 3.11 M/mm3 (3.80-5.20); White Blood Cell Count 9.35 K/mm3 (4.00-11.30)
[2024-06-15 07:09] LABS: Bun/Creatinine Ratio 28.5 (12.0-20.0); Calcium, Blood 8.5 mg/dL (8.5-10.1); Creatinine, Blood 0.53 mg/dL (0.40-1.00); Potassium, Blood 3.5 mmol/L (3.5-5.5)
[2024-06-15 07:32] VITALS: BP 172/61
[2024-06-15 17:07] VITALS: BP 127/66
--- NOTE | 2024-06-15 18:08 | NUR ---
SHIFT SUMMARY PT AOX4, 1 ASSIST WITH THE FWW. BM THIS SHIFT. MEDICATED FOR PAIN PER THE EMAR. UP TO THE CHAIR THIS AFTERNOON. USES THE BSC. MEPALEX TO COCCYX. CALLS AND MAKES HER NEEDS KNOWN. NO ACUTE CHANGES. CALL LIGHT WITHIN REACH, BED LOCKED AND IN THE LOWEST POSITION. WILL REPORT TO ONCOMING NURSE.
[2024-06-15 19:54] VITALS: BP 145/69
[2024-06-15 20:34] LABS: Vancomycin, Trough 24.3 ug/mL (5.0-10.0)
[2024-06-16] MEDS ORDERED: Vancomycin HCL 1,500 MG in NS 250 ML IV SCH (02:00)
[2024-06-16 02:33] VITALS: BP 129/56
--- NOTE | 2024-06-16 04:29 | NUR ---
SHIFT SUMMARY; PATIENT SLEPT IN LONG INTERVALS. MEDICATED FOR BACK PAIN, VSS.REMAINS IN CONTACT PRECAUTIONS FOR MRSA.
[2024-06-16 05:16] LABS: BASOPHILS ABSOLUTE AUTO 0.06 K/mm3 (0.00-0.23); BASOPHILS PERCENT AUTO 1 % (0-2); EOSINOPHILS ABSOLUTE AUTO 0.09 K/mm3 (0.00-0.68); EOSINOPHILS PERCENT AUTO 1 % (0-6); Hematocrit 29.6 % (33.0-51.0); Hemoglobin 9.4 g/dL (11.5-16.0); IMMATURE GRAN ABSOLUTE AUTO 0.26 K/mm3 (0.00-0.10); IMMATURE GRAN PERCENT AUTO 2 % (0-1); LYMPHOCYTES ABSOLUTE AUTO 3.69 K/mm3 (0.84-5.20); LYMPHOCYTES PERCENT AUTO 33 % (21-46); MONOCYTES ABSOLUTE AUTO 0.87 K/mm3 (0.16-1.47); MONOCYTES PERCENT AUTO 8 % (4-13); Mean Corpuscular HGB 29.6 pg (26.0-34.0); Mean Corpuscular HGB Conc 31.8 g/dL (31.5-36.5); Mean Corpuscular Volume 93 fL (80-100); Mean Platelet Volume 8.7 fL (9.1-12.4); NEUTROPHILS PERCENT AUTO 56 % (41-73); Platelet Count 502 K/mm3 (150-400); RDW Coefficient Variation 17.4 % (11.7-14.2); RDW Standard Deviation 58.7 fL (35.1-46.3); Red Blood Cell Count 3.18 M/mm3 (3.80-5.20); White Blood Cell Count 11.37 K/mm3 (4.00-11.30)
[2024-06-16 05:55] LABS: Albumin, Blood 2.4 g/dL (3.4-5.0); Albumin/Globulin Ratio 0.6 (0.8-1.8); Bilirubin, Total 0.4 mg/dL (0.1-1.0); Bun/Creatinine Ratio 28.1 (12.0-20.0); Calcium, Blood 8.8 mg/dL (8.5-10.1); Creatinine, Blood 0.6 mg/dL (0.40-1.00); Globulin, Blood 4.3 g/dL (2.2-4.0); Total Protein, Blood 6.7 g/dL (6.4-8.2)
[2024-06-16 07:43] VITALS: BP 174/68
[2024-06-16 11:38] VITALS: BP 125/64
[2024-06-16 14:27] LABS: Vancomycin, Random 25.4 ug/mL
[2024-06-16 15:27] VITALS: BP 126/66
--- NOTE | 2024-06-16 16:40 | NUR ---
SHIFT SUMMARY- PT ALERT AND ORIENTED AND INDEPENDENT IN THE ROOM. PT IS IN BED, CALL LIGHT IN REACH, NO S&S OF DISTRESS NOTED AT THIS TIME. SENIOR DRAFTER IS GOING TO PLACE A PG THE PT LOST IV ACCESS AT THE START OF THE SHIFT. PLAN IS FOR THE PT TO DC HOME TOMORROW WITH DAILY ABX INFUSIONS IN THE INFUSION CLINIC. PT WILL DC HOME WITH THE PG IN PLACE FOR USE IN THE INFUSION CLINIC.
[2024-06-16 20:11] VITALS: BP 121/58
[2024-06-16] MEDS ORDERED: Vancomycin HCL 750 MG in NS 250 ML IV ONE (23:00)
[2024-06-17 02:55] VITALS: BP 133/56
[2024-06-17 07:17] VITALS: BP 140/60
[2024-06-17] MEDS ORDERED: Vancomycin HCL 1,750 MG in NS 500 ML IV SCH ×2 (09:00→12:00)
[2024-06-17] MEDS ORDERED: Folic Acid 1 MG TAB PO SCH (09:00)
[2024-06-17 10:37] VITALS: BP 143/53
[2024-06-17] MEDS ORDERED: ACET325 PO ×2 (12:39)
[2024-06-17] MEDS ORDERED: LOSA50 PO ×2 (12:40)
[2024-06-17] MEDS ORDERED: Percocet 5-3251 EACH PO ×2 (12:42)
[2024-06-17] MEDS ORDERED: [UNRECOGNIZED DRUG - OTHER] IV ×2 (12:44)
[2024-06-17] MEDS ORDERED: VISBIOME 112.51 EACH PO ×2 (12:45)
--- NOTE | 2024-06-17 14:14 | NUR ---
RECIEVED A CALL FROM [facility] FOR CLARIFICATION- PT HAS DC ORDER FOR FAMOTIDINE PO BID BUT NO DOSE STRENGTH. THIS IS A RESUMED HOME MED THAT NEEDS A REFILL. PT STATES SHE TAKES 40MG PO BID. CLARIFIED THIS DOSE WITH PHARMACY AND DR SCHMITZ. THE DC DOSE IS 40MG PO BID.
--- NOTE | 2024-06-17 14:43 | NUR ---
SHIFT SUMMARY- PT WAS GIVEN VERBAL AND WRITTEN DISCHARGE INSTRUCTIONS AND ACKNOWLEDGED UNDERSTANDING OF THEM. PT RECIEVED HER IV VANCO PRIOR TO DC. [facility] APPOINTMENT 1530 DAILY FIRST ONE TOMORROW. PT WILL DC WITH PG IN PLACE.
== END 2024-06-17 15:45 | disposition home or self-care (01) | DRG 853 ==
LOC: ER 08:40 → MEDS 11:50 → PCU 11:50 → ER 13:55 → PCU 14:21 → MEDS 06-11 16:45
PROVIDERS: Family Medicine; Hospitalist; Student in an Organized Health Care Education/Training Program; ADMIT Internal Medicine
PROC: 0T9B70Z Drainage of Bladder with Drainage Device, Via Natural or Artificial Opening (ICD-10-PCS; 2024-06-07)
PROC: 3E03329 Introduction of Other Anti-infective into Peripheral Vein, Percutaneous Approach (ICD-10-PCS; 2024-06-07)
PROC: 0Y6M0Z9 Detachment at Right Foot, Partial 1st Ray, Open Approach (ICD-10-PCS; principal; 2024-06-13 16:30)
DX: A41.02 Sepsis due to Methicillin resistant Staphylococcus aureus (principal); G93.41 Metabolic encephalopathy; N17.9 Acute kidney failure, unspecified; N12 Tubulo-interstitial nephritis, not specified as acute or chronic; M62.82 Rhabdomyolysis; L02.611 Cutaneous abscess of right foot; N39.0 Urinary tract infection, site not specified; L03.115 Cellulitis of right lower limb; M86.8X7 Other osteomyelitis, ankle and foot; C84.08 Mycosis fungoides, lymph nodes of multiple sites; E87.21 Acute metabolic acidosis; A41.51 Sepsis due to Escherichia coli [E. coli]; R65.20 Severe sepsis without septic shock; Z89.431 Acquired absence of right foot; Z96.651 Presence of right artificial knee joint; F41.9 Anxiety disorder, unspecified; M17.10 Unilateral primary osteoarthritis, unspecified knee; F32.A Depression, unspecified; I10 Essential (primary) hypertension; E66.9 Obesity, unspecified; M79.7 Fibromyalgia; F17.290 Nicotine dependence, other tobacco product, uncomplicated; R33.9 Retention of urine, unspecified; T40.605A Adverse effect of unspecified narcotics, initial encounter; T36.8X5A Adverse effect of other systemic antibiotics, initial encounter; L89.310 Pressure ulcer of right buttock, unstageable; M54.6 Pain in thoracic spine; E87.6 Hypokalemia; Z91.048 Other nonmedicinal substance allergy status; Z88.8 Allergy status to other drugs, medicaments and biological substances; Z79.899 Other long term (current) drug therapy; Z90.49 Acquired absence of other specified parts of digestive tract; Z98.890 Other specified postprocedural states; Z79.52 Long term (current) use of systemic steroids; Z68.35 Body mass index [BMI] 35.0-35.9, adult
CPT/HCPCS: 0241U; 36415; 70450; 71045; 71046; 73200; 73630; 73720; 80048; 80053; 80202; 81001; 82140; 82550; 83605; 83880; 85025; 85651; 86140; 87040; 87071; 87075; 87077; 87086; 87147; 87186; 87205; 88305; 88311; 93005; 93010; 94760; 94762; 96365; 96367; 97110; 97162; 97530; 99285-25; A9270; A9579; C1751; C8929; J0360; J0690; J0696; J1100; J1171; J1644; J1650; J2185; J2405; J2543; J2704; J3010; J3370; J7030; J7040; J7050; J7120; P9612; Q9957

== ENCOUNTER 2024-06-18 15:15 | Day surgery (SDC) | payer BC ==
[~2024-06-18 15:15] MED LIST changes: +ACET325 PO; +LOSA50 PO; +Percocet 5-3251 EACH PO; +VISBIOME 112.51 EACH PO; +Vancomycin HCL 1,750 MG in NS 500 ML IV SCH; +ZANAFLEX413 PO; +[UNRECOGNIZED DRUG - OTHER] IV
[2024-06-18 15:20] VITALS: BP 131/63
[2024-06-18 16:33] LABS: Creatinine, Blood 0.58 mg/dL (0.40-1.00)
== END 2024-06-18 17:58 | disposition home or self-care (01) ==
LOC: ATC 15:15
PROVIDERS: Family Medicine
DX: R78.81 Bacteremia (principal); B95.62 Methicillin resistant Staphylococcus aureus infection as the cause of diseases classified elsewhere; I10 Essential (primary) hypertension; E66.9 Obesity, unspecified; F32.A Depression, unspecified; F17.290 Nicotine dependence, other tobacco product, uncomplicated; N17.9 Acute kidney failure, unspecified; Z88.8 Allergy status to other drugs, medicaments and biological substances; Z79.899 Other long term (current) drug therapy; G93.41 Metabolic encephalopathy
CPT/HCPCS: 82565; 84520; 96365; 96366; J3370; J7040

== ENCOUNTER 2024-06-19 02:19 | Day surgery (SDC) | payer BC ==
[~2024-06-19 02:19] MED LIST changes: -Vancomycin HCL 1,750 MG in NS 500 ML IV SCH
[2024-06-19 13:40] VITALS: BP 119/67
[2024-06-19 14:09] LABS: Blood Urea Nitrogen 9 mg/dL (8-24); Creatinine, Blood 0.57 mg/dL (0.40-1.00); Vancomycin, Trough 14.9 ug/mL (5.0-10.0)
[2024-06-19] MEDS ORDERED: Vancomycin HCL 1,750 MG in NS 500 ML IV SCH (14:25)
== END 2024-06-19 16:52 | disposition home or self-care (01) ==
LOC: ATC 02:19
PROVIDERS: Family Medicine
DX: R78.81 Bacteremia (principal); B95.62 Methicillin resistant Staphylococcus aureus infection as the cause of diseases classified elsewhere; F32.A Depression, unspecified; I10 Essential (primary) hypertension; G93.41 Metabolic encephalopathy; N17.9 Acute kidney failure, unspecified; L89.310 Pressure ulcer of right buttock, unstageable; Z88.8 Allergy status to other drugs, medicaments and biological substances; Z79.899 Other long term (current) drug therapy
CPT/HCPCS: 80202; 82565; 84520; 96365; 96366; J3370; J7040

== ENCOUNTER 2024-06-20 00:33 | Day surgery (SDC) | payer BC ==
[2024-06-20] MEDS ORDERED: Vancomycin HCL 1,750 MG in NS 500 ML IV SCH (06:00)
[2024-06-20 16:05] VITALS: BP 128/54
== END 2024-06-20 17:43 | disposition home or self-care (01) ==
LOC: ATC 00:33
DX: R78.81 Bacteremia (principal); C84.08 Mycosis fungoides, lymph nodes of multiple sites; I10 Essential (primary) hypertension; M79.7 Fibromyalgia; F17.290 Nicotine dependence, other tobacco product, uncomplicated; Z79.52 Long term (current) use of systemic steroids; Z79.899 Other long term (current) drug therapy; Z91.041 Radiographic dye allergy status; Z88.8 Allergy status to other drugs, medicaments and biological substances; Z89.421 Acquired absence of other right toe(s); Z89.411 Acquired absence of right great toe; Z90.49 Acquired absence of other specified parts of digestive tract
CPT/HCPCS: 96365; 96366; J3370; J7040

== ENCOUNTER 2024-06-21 00:42 | Day surgery (SDC) | payer BC ==
[2024-06-21] MEDS ORDERED: Vancomycin HCL 1,750 MG in NS 500 ML IV SCH (06:00)
[2024-06-21 15:43] VITALS: BP 146/61
== END 2024-06-21 17:56 | disposition home or self-care (01) ==
LOC: ATC 00:42
DX: R78.81 Bacteremia (principal); C84.08 Mycosis fungoides, lymph nodes of multiple sites; I10 Essential (primary) hypertension; M79.7 Fibromyalgia; F32.A Depression, unspecified; F17.290 Nicotine dependence, other tobacco product, uncomplicated; Z79.52 Long term (current) use of systemic steroids; Z79.899 Other long term (current) drug therapy; Z91.041 Radiographic dye allergy status; Z88.8 Allergy status to other drugs, medicaments and biological substances; Z90.49 Acquired absence of other specified parts of digestive tract; Z89.421 Acquired absence of other right toe(s); Z89.411 Acquired absence of right great toe
CPT/HCPCS: 96365; 96366; J3370; J7040

== ENCOUNTER 2024-06-22 02:32 | Day surgery (SDC) | payer BC ==
[2024-06-22 14:25] VITALS: BP 144/61
[2024-06-22 14:56] LABS: Creatinine, Blood 0.58 mg/dL (0.40-1.00); Vancomycin, Trough 16.7 ug/mL (5.0-10.0)
[2024-06-22] MEDS ORDERED: Vancomycin HCL 1,750 MG in NS 500 ML IV SCH (15:10)
== END 2024-06-22 17:28 | disposition home or self-care (01) ==
LOC: ATC 02:32
PROVIDERS: Internal Medicine
DX: A41.9 Sepsis, unspecified organism (principal); R65.20 Severe sepsis without septic shock; G93.41 Metabolic encephalopathy; N17.9 Acute kidney failure, unspecified; C84.08 Mycosis fungoides, lymph nodes of multiple sites; L89.310 Pressure ulcer of right buttock, unstageable; Z89.411 Acquired absence of right great toe; M62.82 Rhabdomyolysis; E87.21 Acute metabolic acidosis; F41.8 Other specified anxiety disorders; I10 Essential (primary) hypertension; Z88.8 Allergy status to other drugs, medicaments and biological substances; Z91.041 Radiographic dye allergy status; Z79.899 Other long term (current) drug therapy
CPT/HCPCS: 80202; 82565; 96365; 96366; J3370; J7040

== ENCOUNTER 2024-06-23 04:36 | Day surgery (SDC) | payer BC ==
[2024-06-23] MEDS ORDERED: Vancomycin HCL 1,750 MG in NS 500 ML IV SCH (06:00)
[2024-06-23 15:40] VITALS: BP 153/67
== END 2024-06-23 17:53 | disposition home or self-care (01) ==
LOC: ATC 04:36
DX: R78.81 Bacteremia (principal); C84.08 Mycosis fungoides, lymph nodes of multiple sites; I10 Essential (primary) hypertension; M79.7 Fibromyalgia; F17.290 Nicotine dependence, other tobacco product, uncomplicated; Z79.899 Other long term (current) drug therapy; Z88.8 Allergy status to other drugs, medicaments and biological substances; Z91.041 Radiographic dye allergy status; Z89.411 Acquired absence of right great toe; Z89.421 Acquired absence of other right toe(s); Z90.49 Acquired absence of other specified parts of digestive tract
CPT/HCPCS: 96365; 96366; J3370; J7040

== ENCOUNTER 2024-06-24 03:24 | Day surgery (SDC) | payer BC ==
[2024-06-24] MEDS ORDERED: Vancomycin HCL 1,750 MG in NS 500 ML IV SCH (07:00)
[2024-06-24 15:30] VITALS: BP 160/77
== END 2024-06-24 17:27 | disposition home or self-care (01) ==
LOC: ATC 03:24
DX: R78.81 Bacteremia (principal); B95.62 Methicillin resistant Staphylococcus aureus infection as the cause of diseases classified elsewhere
CPT/HCPCS: 96365; 96366; J3370; J7040

== ENCOUNTER 2024-06-25 01:49 | Day surgery (SDC) | payer BC ==
[2024-06-25] MEDS ORDERED: Vancomycin HCL 1,750 MG in NS 500 ML IV SCH (06:00)
[2024-06-25 15:23] VITALS: BP 138/69
== END 2024-06-25 23:00 | disposition home or self-care (01) ==
LOC: ATC 01:49
DX: R78.81 Bacteremia (principal); C84.08 Mycosis fungoides, lymph nodes of multiple sites; I10 Essential (primary) hypertension; M79.7 Fibromyalgia; F17.290 Nicotine dependence, other tobacco product, uncomplicated; Z79.899 Other long term (current) drug therapy; Z88.8 Allergy status to other drugs, medicaments and biological substances; Z91.041 Radiographic dye allergy status; Z90.49 Acquired absence of other specified parts of digestive tract
CPT/HCPCS: 96365; 96366; J3370; J7040

== ENCOUNTER 2024-06-26 02:22 | Day surgery (SDC) | payer BC ==
[2024-06-26] MEDS ORDERED: Vancomycin HCL 1,750 MG in NS 500 ML IV SCH (06:00)
[2024-06-26 15:30] VITALS: BP 167/76
== END 2024-06-26 17:53 | disposition home or self-care (01) ==
LOC: ATC 02:22
DX: A41.9 Sepsis, unspecified organism (principal); R65.20 Severe sepsis without septic shock; N39.0 Urinary tract infection, site not specified; I10 Essential (primary) hypertension; Z88.8 Allergy status to other drugs, medicaments and biological substances; Z79.899 Other long term (current) drug therapy
CPT/HCPCS: 96365; 96366; J3370; J7040

== ENCOUNTER 2024-06-27 03:11 | Day surgery (SDC) | payer BC ==
[2024-06-27] MEDS ORDERED: Vancomycin HCL 1,750 MG in NS 500 ML IV SCH (06:00)
[2024-06-27 15:33] VITALS: BP 184/77
== END 2024-06-27 17:46 | disposition home or self-care (01) ==
LOC: ATC 03:11
DX: A41.9 Sepsis, unspecified organism (principal); R65.20 Severe sepsis without septic shock; G93.41 Metabolic encephalopathy; N17.9 Acute kidney failure, unspecified; C84.09 Mycosis fungoides, extranodal and solid organ sites; L89.310 Pressure ulcer of right buttock, unstageable; Z89.411 Acquired absence of right great toe; M62.82 Rhabdomyolysis; I10 Essential (primary) hypertension; F17.290 Nicotine dependence, other tobacco product, uncomplicated; Z88.8 Allergy status to other drugs, medicaments and biological substances; Z79.899 Other long term (current) drug therapy
CPT/HCPCS: 96365; 96366; J3370; J7040

== ENCOUNTER 2024-08-01 09:09 | Emergency (ER) | payer BC ==
[~2024-08-01] VITALS: Ht 165.1 cm; Wt 74.8 kg
[2024-08-01] MEDS ORDERED: NS 1,000 ML IV ONE (10:16)
[2024-08-01 10:41] LABS: BASOPHILS ABSOLUTE AUTO 0.09 K/mm3 (0.00-0.23); BASOPHILS PERCENT AUTO 1 % (0-2); EOSINOPHILS ABSOLUTE AUTO 0.16 K/mm3 (0.00-0.68); EOSINOPHILS PERCENT AUTO 1 % (0-6); Hematocrit 32.5 % (33.0-51.0); Hemoglobin 10.5 g/dL (11.5-16.0); IMMATURE GRAN ABSOLUTE AUTO 0.38 K/mm3 (0.00-0.10); IMMATURE GRAN PERCENT AUTO 3 % (0-1); LYMPHOCYTES ABSOLUTE AUTO 2.42 K/mm3 (0.84-5.20); LYMPHOCYTES PERCENT AUTO 16 % (21-46); MONOCYTES ABSOLUTE AUTO 0.79 K/mm3 (0.16-1.47); MONOCYTES PERCENT AUTO 5 % (4-13); Mean Corpuscular HGB 26.7 pg (26.0-34.0); Mean Corpuscular HGB Conc 32.3 g/dL (31.5-36.5); Mean Corpuscular Volume 83 fL (80-100); Mean Platelet Volume 8.5 fL (9.1-12.4); NEUTROPHILS ABSOLUTE AUTO 11.54 K/mm3 (1.96-9.15); NEUTROPHILS PERCENT AUTO 75 % (41-73); Platelet Count 567 K/mm3 (150-400); RDW Standard Deviation 48.5 fL (35.1-46.3); Red Blood Cell Count 3.93 M/mm3 (3.80-5.20); White Blood Cell Count 15.38 K/mm3 (4.00-11.30)
[2024-08-01] MEDS ORDERED: NS 1,000 ML IV SCH (10:45)
[2024-08-01] MEDS ORDERED: MetroNIDAZOLE 500MG/NS 100 ml 100 ML IV ONE (11:05)
[2024-08-01] MEDS ORDERED: CefTRIAXone Sodium 1,000 MG in NS 100 ML IV ONE (11:05)
[2024-08-01] MEDS ORDERED: Vancomycin HCL 2,000 MG in NS 520 ML IV ONE (11:05)
[2024-08-01 11:36] LABS: Albumin, Blood 2.9 g/dL (3.4-5.0); Albumin/Globulin Ratio 0.6 (0.8-1.8); Bilirubin, Total 0.4 mg/dL (0.1-1.0); Bun/Creatinine Ratio 34.4 (12.0-20.0); C-Reactive Protein, High Sens. 52.9 mg/L (0.000-3.000); Calcium, Blood 9.2 mg/dL (8.5-10.1); Creatinine, Blood 0.64 mg/dL (0.40-1.00); Globulin, Blood 5.2 g/dL (2.2-4.0); Potassium, Blood 4.1 mmol/L (3.5-5.5); Total Protein, Blood 8.1 g/dL (6.4-8.2)
[2024-08-01] MEDS ORDERED: LORazepam 2 MG/ML 1ML Injection IV ONE (11:50)
[2024-08-01 17:15] VITALS: BP 96/54
== END 2024-08-01 17:35 | disposition short-term general hospital (02) ==
LOC: ER 09:09
PROVIDERS: Emergency Medicine
DX: A41.02 Sepsis due to Methicillin resistant Staphylococcus aureus (principal); G06.1 Intraspinal abscess and granuloma; M86.9 Osteomyelitis, unspecified; M46.44 Discitis, unspecified, thoracic region; R65.20 Severe sepsis without septic shock; I10 Essential (primary) hypertension; Z85.72 Personal history of non-Hodgkin lymphomas; Z79.2 Long term (current) use of antibiotics; Z79.899 Other long term (current) drug therapy
CPT/HCPCS: 72157; 72158; 80053; 83605; 85025; 85651; 86141; 87040; 87077; 87147; 87186; 96365-59; 96366; 96367-59; 96375-59; 99285-25; A6590; A9579; J0696; J2060; J3370; J7030; J7040; J7060

== ENCOUNTER 2024-08-26 17:26 | Inpatient (IN) | payer BC ==
[~2024-08-26] VITALS: Ht 165.1 cm; Wt 77.1 kg
[2024-08-26] MEDS ORDERED: NS 1,000 ML IV SCH (18:25)
[2024-08-26] MEDS ORDERED: HYDROmorphone HCl/Pf 1MG SYR IV ONE ×2 (18:25→21:50)
[2024-08-26 19:15] LABS: BASOPHILS ABSOLUTE AUTO 0.04 K/mm3 (0.00-0.23); BASOPHILS PERCENT AUTO 0 % (0-2); EOSINOPHILS ABSOLUTE AUTO 0.07 K/mm3 (0.00-0.68); EOSINOPHILS PERCENT AUTO 1 % (0-6); Hematocrit 34.8 % (33.0-51.0); Hemoglobin 11.2 g/dL (11.5-16.0); IMMATURE GRAN ABSOLUTE AUTO 0.06 K/mm3 (0.00-0.10); IMMATURE GRAN PERCENT AUTO 1 % (0-1); LYMPHOCYTES PERCENT AUTO 17 % (21-46); MONOCYTES ABSOLUTE AUTO 0.67 K/mm3 (0.16-1.47); MONOCYTES PERCENT AUTO 6 % (4-13); Mean Corpuscular HGB 26.9 pg (26.0-34.0); Mean Corpuscular HGB Conc 32.2 g/dL (31.5-36.5); Mean Corpuscular Volume 84 fL (80-100); Mean Platelet Volume 8.3 fL (9.1-12.4); NEUTROPHILS ABSOLUTE AUTO 8.56 K/mm3 (1.96-9.15); NEUTROPHILS PERCENT AUTO 76 % (41-73); Platelet Count 470 K/mm3 (150-400); RDW Coefficient Variation 18.3 % (11.7-14.2); RDW Standard Deviation 56.2 fL (35.1-46.3); Red Blood Cell Count 4.17 M/mm3 (3.80-5.20)
[2024-08-26 19:30] LABS: Bun/Creatinine Ratio 20.4 (12.0-20.0); Creatinine, Blood 0.39 mg/dL (0.40-1.00); Potassium, Blood 3.8 mmol/L (3.5-5.5)
[2024-08-26] MEDS ORDERED: DAPTOmycin 500 MG in NS 100 ML IV ONE (23:20)
[2024-08-26] MEDS ORDERED: DAPTOmycin 600 MG in NS 50 ML IV ONE (23:40)
[2024-08-27] MEDS ORDERED: FentaNYL Citrate 50 MCG/ML 2 ML Injection IV PRN (01:00)
[2024-08-27] MEDS ORDERED: HYDROcodone 5-APAP 325 TAB PO PRN (01:00)
[2024-08-27] MEDS ORDERED: Polyethylene Glycol 3350 17 gm PO PRN (02:25)
[2024-08-27 02:39] VITALS: BP 136/80
--- NOTE | 2024-08-27 03:51 | NUR ---
ASSUMPTION OF CARE PT ARRIVED FROM ER TO ROOM 301 VIA GURNEY AT APPROX 0224. PT ADMITTED FOR INTRACTABLE BACK PAIN. POULTRY VACCINATOR IN TO DO ADMISSION ASSESSMENT. PT A&O X4. MAKES NEEDS KNOWN. PT C/O 11/26 LOW BACK PAIN. MEDICATED WITH PRN FENTANYL 50MCG IV PER EMAR ORDERS ; INEFFECTIVE. PT PAIN ASSESSMENT ONGOING AND USE OF PRN MEDICATIONS ORDERED. PT ABLE TO LOG ROLL WITH INCREASED PAIN IN BACK. FEMALE PUREWICK IN PLACE DRAINING YELLOW URINE. PT ORIENTED TO ROOM AND CALL LIGHT SYSTEM. BED IN LOWEST POSITION. CALL LIGHT IN REACH. CARES ONGOING ORDERED.
[2024-08-27 05:44] LABS: BASOPHILS ABSOLUTE AUTO 0.04 K/mm3 (0.00-0.23); BASOPHILS PERCENT AUTO 1 % (0-2); EOSINOPHILS ABSOLUTE AUTO 0.19 K/mm3 (0.00-0.68); EOSINOPHILS PERCENT AUTO 2 % (0-6); Hematocrit 33.4 % (33.0-51.0); Hemoglobin 10.8 g/dL (11.5-16.0); IMMATURE GRAN ABSOLUTE AUTO 0.04 K/mm3 (0.00-0.10); IMMATURE GRAN PERCENT AUTO 1 % (0-1); LYMPHOCYTES ABSOLUTE AUTO 2.78 K/mm3 (0.84-5.20); LYMPHOCYTES PERCENT AUTO 31 % (21-46); MONOCYTES ABSOLUTE AUTO 0.68 K/mm3 (0.16-1.47); MONOCYTES PERCENT AUTO 8 % (4-13); Mean Corpuscular HGB 27.4 pg (26.0-34.0); Mean Corpuscular HGB Conc 32.3 g/dL (31.5-36.5); Mean Corpuscular Volume 85 fL (80-100); Mean Platelet Volume 8.6 fL (9.1-12.4); NEUTROPHILS ABSOLUTE AUTO 5.11 K/mm3 (1.96-9.15); NEUTROPHILS PERCENT AUTO 58 % (41-73); Platelet Count 444 K/mm3 (150-400); RDW Coefficient Variation 18.5 % (11.7-14.2); RDW Standard Deviation 57.5 fL (35.1-46.3); Red Blood Cell Count 3.94 M/mm3 (3.80-5.20); White Blood Cell Count 8.84 K/mm3 (4.00-11.30)
[2024-08-27 06:10] LABS: Bun/Creatinine Ratio 22.8 (12.0-20.0); Calcium, Blood 9.6 mg/dL (8.5-10.1); Creatinine, Blood 0.39 mg/dL (0.40-1.00); Potassium, Blood 3.5 mmol/L (3.5-5.5)
[2024-08-27] MEDS ORDERED: Famotidine 20 MG Tab PO PRN (07:00)
[2024-08-27] MEDS ORDERED: TiZANidine HCl 4 MG Tab PO PRN (07:00)
[2024-08-27] MEDS ORDERED: ClonazePAM 0.5 MG Tab PO PRN (07:05)
[2024-08-27] MEDS ORDERED: Magnesium Hydroxide Conc 10 ML UDC PO PRN (07:10)
[2024-08-27] MEDS ORDERED: Bisacodyl 10 MG Supp PR PRN (07:10)
[2024-08-27 07:19] VITALS: BP 172/82
[2024-08-27] MEDS ORDERED: Venlafaxine HCl 75 MG CapCR PO SCH (09:00)
[2024-08-27] MEDS ORDERED: Spironolactone 25 MG Tab PO SCH (09:00)
[2024-08-27] MEDS ORDERED: Folic Acid 1 MG TAB PO SCH (09:00)
[2024-08-27] MEDS ORDERED: Enoxaparin 40 MG/0.4 ML SYR SC SCH (09:00)
[2024-08-27] MEDS ORDERED: Polyethylene Glycol 3350 17 gm PO SCH (09:00)
[2024-08-27] MEDS ORDERED: ARIPiprazole 10 MG Tab PO SCH (09:00)
[2024-08-27] MEDS ORDERED: Labetalol HCL 100 MG TAB PO SCH (09:00)
[2024-08-27] MEDS ORDERED: Lactobacil 2-S.Thermo-Bifido 1 1 Cap PO SCH (09:00)
[2024-08-27] MEDS ORDERED: Sennosides 8.6 MG Tab PO SCH (09:00)
[2024-08-27] MEDS ORDERED: Losartan Potassium 50 MG Tab PO SCH (09:00)
[2024-08-27] MEDS ORDERED: OxyCODONE 5 mg/Acetamin 325 mg TABLET PO PRN ×2 (10:25→14:30)
[2024-08-27] MEDS ORDERED: OXYC10ER PO (11:41)
[2024-08-27] MEDS ORDERED: CUBICIN RF500 M1 IV (11:49)
[2024-08-27] MEDS ORDERED: OxyCODONE HCL 20 MG TABCR PO SCH ×2 (15:00→21:00)
--- NOTE | 2024-08-27 18:50 | NUR ---
ALERT AND ORIENTED X4, CLEARLY MAKES NEEDS KNOWN, PATIETN TRIES TO REPOSITION TO SIDE WITH LOG ROLE TECHNIQUE BUT DOES NOT TOLERATED IT EVEN WITH PAIN CONTROL. PURWIK IN PLACE, PATIENT REPORTS SHE IS CONTINENT BUT FOUND TO HAVE VOIDED WITH BM SMEARS. MEDICATED WITH SCHEDULED BM MEDICATIONS. TO HAVE DAPTOMYCIN IN PM SHIFT, CALL LIGHT WITH IN REACH, RIANNA RELAY TO PM RN
[2024-08-27 19:04] VITALS: BP 183/88
[2024-08-27] MEDS ORDERED: NS 250 ML IV PRN (20:45)
[2024-08-27] MEDS ORDERED: DAPTOmycin 600 MG in NS 50 ML IV SCH (21:00)
[2024-08-28 04:02] VITALS: BP 177/81
--- NOTE | 2024-08-28 04:50 | NUR ---
PSYCHIATRIC ORDERLY SUMMARY: PT ADMITTED FOR INTRACTABLE BACK PAIN. PT HAS AN ORDER SCHEDULED OXYCONTIN 20MG BID. INITIAL DOSE GIVEN BY DAY SHIFT NURSE AT APPROX 1430. DISCSSED DOSING WITH TAILINGS DAM LABORER AND 0900 DOSE GIVEN EARLY FOR PT PAIN MANAGEMENT AND TO STRAIGHTEN OUT DOSING SCHEDULE. PT A&O X4. MEDICATED PER EMAR ORDERS WITH PRN PERCOCET FOR LOW BACK PAIN; MINIMAL EFFECTIVENESS. PT HAS REPORTED TO THIS NURSE SEVERAL TIMES THAT SHE FEELS HER PAIN HAS CHANGED AND THAT "SOMETHING DIFFERENT IS GOING ON WITH MY BACK. I HAVE NEVER HAD THIS BAD OF PAIN BEFORE. MY PAIN HAS CHANGED AND IS NOW ON MY LEFT SIDE / HIP AREA." PT TEARFUL WHEN LOG ROLLING FOR RICHARD CARE. MINIMAL LOG ROLL PERFORMED DUE TO PT INTOLLERANCE. PT PREFERS TO LAY FLAT FOR PAIN. CALL LIGHT IN REACH. BED IN LOWEST POSITION. CARES ONGOING ORDERED.
[2024-08-28 05:23] LABS: BASOPHILS ABSOLUTE AUTO 0.06 K/mm3 (0.00-0.23); BASOPHILS PERCENT AUTO 1 % (0-2); EOSINOPHILS ABSOLUTE AUTO 0.13 K/mm3 (0.00-0.68); EOSINOPHILS PERCENT AUTO 2 % (0-6); Hematocrit 34.2 % (33.0-51.0); Hemoglobin 10.8 g/dL (11.5-16.0); IMMATURE GRAN ABSOLUTE AUTO 0.02 K/mm3 (0.00-0.10); IMMATURE GRAN PERCENT AUTO 0 % (0-1); LYMPHOCYTES ABSOLUTE AUTO 2.55 K/mm3 (0.84-5.20); LYMPHOCYTES PERCENT AUTO 32 % (21-46); MONOCYTES ABSOLUTE AUTO 0.43 K/mm3 (0.16-1.47); MONOCYTES PERCENT AUTO 6 % (4-13); Mean Corpuscular HGB 26.7 pg (26.0-34.0); Mean Corpuscular HGB Conc 31.6 g/dL (31.5-36.5); Mean Corpuscular Volume 85 fL (80-100); Mean Platelet Volume 8.4 fL (9.1-12.4); NEUTROPHILS ABSOLUTE AUTO 4.68 K/mm3 (1.96-9.15); NEUTROPHILS PERCENT AUTO 59 % (41-73); Platelet Count 424 K/mm3 (150-400); RDW Coefficient Variation 18.4 % (11.7-14.2); RDW Standard Deviation 56.7 fL (35.1-46.3); Red Blood Cell Count 4.04 M/mm3 (3.80-5.20); White Blood Cell Count 7.87 K/mm3 (4.00-11.30)
[2024-08-28 05:58] LABS: Albumin, Blood 3.2 g/dL (3.4-5.0); Albumin/Globulin Ratio 0.6 (0.8-1.8); Bilirubin, Total 0.4 mg/dL (0.1-1.0); Bun/Creatinine Ratio 23.3 (12.0-20.0); Calcium, Blood 9.7 mg/dL (8.5-10.1); Creatinine, Blood 0.43 mg/dL (0.40-1.00); Globulin, Blood 5.2 g/dL (2.2-4.0); Potassium, Blood 3.9 mmol/L (3.5-5.5); Total Protein, Blood 8.4 g/dL (6.4-8.2)
[2024-08-28 07:04] VITALS: BP 178/75
[2024-08-28] MEDS ORDERED: Multivitamins 1 Tab PO SCH (09:00)
[2024-08-28] MEDS ORDERED: Pregabalin 50 MG Capsule PO SCH (09:00)
[2024-08-28] MEDS ORDERED: FentaNYL Citrate 50 MCG/ML 2 ML Injection IV PRN (11:55)
[2024-08-28] MEDS ORDERED: HYDROmorphone HCl/Pf 1MG SYR IV PRN (12:25)
[2024-08-28 16:01] VITALS: BP 109/66
--- NOTE | 2024-08-28 18:11 | NUR ---
SHIFT SUMMARY PT A&OX4. PT ADMITTED DUE TO INTRACTABLE LOW BACK PAIN. PAIN MANAGED PER EMAR. REPORTED TO DR. ORTEGA PT STATES "PAIN MEDS ARENT WORKING." GAVE MED FOR MUSCLE SPASMS. DR. ROMERO UPDATED PAIN MEDS. PT ON BEDREST. PT DECLINED WORKING WITH PT TODAY. PT REFUSED ANTI-EMBOLIC STOCKING. PT EATS NOT ADEQUATE DUE TO DISCOMFORT WITH PT POSITIONING. PT FLOATED WITH PILLOWS UNDER HIPS. PERWICK IN PLACE. ATTENDS CHANGED PRN. PT IN BED, BED IN LOWEST POSITIONS, CALL LIGHT IN REACH. ENCOURAGED REPOSITIONING.
[2024-08-28 19:35] VITALS: BP 87/51
[2024-08-28 21:15] VITALS: BP 106/56
[2024-08-29] VITALS (9 sets, daily range): BP systolic 79–114; BP diastolic 46–57
--- NOTE | 2024-08-29 04:46 | NUR ---
PRINTING TABLE WORKER SUMMARY: PT ADMITTED FOR INTRACTABLE LOW BACK PAIN. PT PAIN MEDS CHANGED ON DAY SHIFT. THIS NURSE MEDICATED PT X1 WITH PRN DILAUDED 1MG IV AND TINAZIDINE; EFFECITVE. PT LOG ROLLS WITH DECREASED PAIN THIS AM DURING RICHARD CARE. PT REPORTS PAIN TO BACK AND L HIP IS TOLERABLE AT A 6/10 THIS AM DURING CARE. FLUIDS AND PO INTAKE ENCOURAGED WHILE AWAKE. NO ACUTE CHANGES T/O SIHFT. BED IN LOWEST POSITION. CALL LIGHT IN REACH. CARES ONGOING ORDERED.
[2024-08-29] MEDS ORDERED: NS 500 ML IV SCH (05:55)
[2024-08-29 06:37] LABS: BASOPHILS ABSOLUTE AUTO 0.05 K/mm3 (0.00-0.23); BASOPHILS PERCENT AUTO 1 % (0-2); EOSINOPHILS ABSOLUTE AUTO 0.22 K/mm3 (0.00-0.68); EOSINOPHILS PERCENT AUTO 2 % (0-6); Hematocrit 29.9 % (33.0-51.0); Hemoglobin 9.6 g/dL (11.5-16.0); IMMATURE GRAN ABSOLUTE AUTO 0.07 K/mm3 (0.00-0.10); IMMATURE GRAN PERCENT AUTO 1 % (0-1); LYMPHOCYTES ABSOLUTE AUTO 3.76 K/mm3 (0.84-5.20); LYMPHOCYTES PERCENT AUTO 38 % (21-46); MONOCYTES PERCENT AUTO 8 % (4-13); Mean Corpuscular HGB 27.4 pg (26.0-34.0); Mean Corpuscular HGB Conc 32.1 g/dL (31.5-36.5); Mean Corpuscular Volume 85 fL (80-100); Mean Platelet Volume 8.1 fL (9.1-12.4); NEUTROPHILS ABSOLUTE AUTO 4.99 K/mm3 (1.96-9.15); NEUTROPHILS PERCENT AUTO 51 % (41-73); Platelet Count 370 K/mm3 (150-400); RDW Coefficient Variation 18.5 % (11.7-14.2); RDW Standard Deviation 58.2 fL (35.1-46.3); White Blood Cell Count 9.89 K/mm3 (4.00-11.30)
--- NOTE | 2024-08-29 06:39 | NUR ---
PT NOTED TO HAVE SOFT BP READINGS; ASYMPTOMATIC. HOSPITALIST NOTIFIED. NEW ORDER REC'D TO GIVE NS 500ML BOLUS. INFUSING.
[2024-08-29 06:56] LABS: Bun/Creatinine Ratio 14.6 (12.0-20.0); Calcium, Blood 9.4 mg/dL (8.5-10.1); Creatinine, Blood 1.23 mg/dL (0.40-1.00); Phosphorus, Blood 5.7 mg/dL (2.5-4.9); Potassium, Blood 4.4 mmol/L (3.5-5.5)
[2024-08-29] MEDS ORDERED: OxyCODONE 5 mg/Acetamin 325 mg TABLET PO PRN (07:25)
[2024-08-29] MEDS ORDERED: Lactated Ringer's 1,000 ML IV SCH (08:00)
--- NOTE | 2024-08-29 10:05 | NUR ---
NOTE PT BLOOD PRESSURE 84/50. RECHECKED IT WAS 94/46 LYING DOWN, PT DENIED SYMPTOMS OF HYPOTENSION. PHYSICAL THERAPY PLANNING TO WORK WITH PT, PT REQUESTING "PRE MEDICATED" REPORTED TO DR. ORTEGA BP, PAIN, PLANNING TO WORK WITH PT. NO NEW ORDERS ADDED. LR RUNNING AT 100ML/HR
--- NOTE | 2024-08-29 16:52 | NUR ---
SHIFT SUMMARY PT A&OX4. PT ADMITTED DUE TO INTRACTABLE LOW BACK PAIN. PAIN MANAGED PER EMAR. PT DENIED CHEST PAIN, SOB. PT WORKED WITH PHYSICAL THERAPY, AND WAS PRE MEDICATED. PT ABLE TO SIT ON SIDE OF BED AND STAND UP 5 TIMES PER PHYSICAL THERAPY. PT HAS SOFT BLOOD PRESSURES, REPORTED TO DR. ORTEGA, PT HAS FLUIDS INFUSING VIA IV AT 100ML/HR. PT ENCOURAGED TO EAT ADEQUATE. IV VANCO ORDERED, WILL GET DOSE AT 9PM, PASSED ON UPDATED WEIGHT TO PHARMACY. PERWICK IN PLACE, ATTENDS CHANGED PRN, PT USES BEDPAN FOR BM. PT REPOSITIONED NEEDED. PT IN BED, BED IN LOWEST POSITION, CALL LIGHT IN REACH.
[2024-08-29] MEDS ORDERED: Polyethylene Glycol 3350 17 gm PO SCH (21:00)
[2024-08-29] MEDS ORDERED: Sennosides 8.6 MG Tab PO SCH (21:00)
[2024-08-29] MEDS ORDERED: Vancomycin HCL 2,000 MG in NS 500 ML IV ONE (21:00)
--- NOTE | 2024-08-30 03:47 | NUR ---
SHIFT SUMMARY REPORT PATIENT ADIMITTED FOR INTERACTABLE LOW BACK PAIN, ALERT AND ORIENTED X 4,PATIENT VERBALIZED PAIN /, PAIN MEDS SERVED PER EMAR,SHE RECIVED HER IVF FLUID RINGERS LACTACT AND LACTULOSE FOR CONSTIPATION, PEUWICK CHANGED DRAINING MIRNA COLOURED URINE. SACRAL AREA TREATED FOR SKIN BREAKDOWN WITH WOUND PATCH.BED BROUGHT TO LOWEST POSITION, CALL LIGHT IN REACH , PATIENT COPERATIVE WITH CARE SLEPT WELL DURING THE SHIFT.
[2024-08-30 04:12] VITALS: BP 106/46
[2024-08-30 05:13] LABS: BASOPHILS ABSOLUTE AUTO 0.05 K/mm3 (0.00-0.23); BASOPHILS PERCENT AUTO 1 % (0-2); EOSINOPHILS ABSOLUTE AUTO 0.18 K/mm3 (0.00-0.68); EOSINOPHILS PERCENT AUTO 2 % (0-6); Hematocrit 28.1 % (33.0-51.0); IMMATURE GRAN ABSOLUTE AUTO 0.05 K/mm3 (0.00-0.10); IMMATURE GRAN PERCENT AUTO 1 % (0-1); LYMPHOCYTES ABSOLUTE AUTO 4.05 K/mm3 (0.84-5.20); LYMPHOCYTES PERCENT AUTO 43 % (21-46); MONOCYTES ABSOLUTE AUTO 0.77 K/mm3 (0.16-1.47); MONOCYTES PERCENT AUTO 8 % (4-13); Mean Corpuscular HGB 27.2 pg (26.0-34.0); Mean Corpuscular Volume 85 fL (80-100); Mean Platelet Volume 8.7 fL (9.1-12.4); NEUTROPHILS ABSOLUTE AUTO 4.41 K/mm3 (1.96-9.15); NEUTROPHILS PERCENT AUTO 46 % (41-73); Platelet Count 354 K/mm3 (150-400); RDW Coefficient Variation 18.5 % (11.7-14.2); RDW Standard Deviation 57.9 fL (35.1-46.3); Red Blood Cell Count 3.31 M/mm3 (3.80-5.20); White Blood Cell Count 9.51 K/mm3 (4.00-11.30)
[2024-08-30 05:40] LABS: Bun/Creatinine Ratio 32.3 (12.0-20.0); Calcium, Blood 8.9 mg/dL (8.5-10.1); Creatinine, Blood 0.68 mg/dL (0.40-1.00); Potassium, Blood 4.7 mmol/L (3.5-5.5)
[2024-08-30 07:15] VITALS: BP 102/64
[2024-08-30] MEDS ORDERED: Vancomycin HCL 1,250 MG in NS 250 ML IV SCH (09:00)
[2024-08-30] MEDS ORDERED: DAPTOmycin 600 MG in NS 50 ML IV SCH (11:00)
[2024-08-30 16:02] VITALS: BP 97/56
[2024-08-30 16:48] LABS: VITAMIN B1,WHOLE BLOOD 76 nmol/L (70-180)
--- NOTE | 2024-08-30 17:12 | NUR ---
SHIFT SUMMARY: PT A&O X4. PLEASANT AND COOPERATIVE WITH CARE. PT MEDICATED FOR BACK PAIN WITH PRN AND SCHEDULED PAIN MEDICATION ALONG WITH REPOSITION AND REST. PT WORKED WITH PHYSICAL AND OCCUPATIONAL THERAPY THIS SHIFT STILL RECOMMENDING SNF. PT STATED SHE RECEIVED CALL FROM INSURANCE COMPANY STATING REHAB WAS NOT APPROVED. SPOKE WITH CASE MANAGEMENT REGARDING ISSUE. IV CHANGED THIS SHIFT TO ONCE A DAY DAPTOMYCIN. PT HAD LARGE BM THIS AM AND SEVERAL SMALL T/O DAY. CALL LIGHT IN REACH. BED IN LOWEST POSITION.
[2024-08-30 19:29] VITALS: BP 111/63
[2024-08-30] MEDS ORDERED: Vancomycin HCL 1,500 MG in NS 250 ML IV SCH (21:00)
--- NOTE | 2024-08-31 03:17 | NUR ---
SHIFT SUMMARY NO ACUTE EVENTS DURING THIS SHIFT. MEDICATED WITH SCHEDULED OXYCONTIN PO ORDERED AT HS. PT REPORTS EFFECTIVE. PT ABLE TO REPOSITION HERSELF IN BED. PUREWICK DRAINING YELLOW COLOR URINE, PT CURRENTLY AT BEDREST. BM, XL, LOOSE AT HS. PT USING BEDPAN. HS SCHEDULED BOWEL CARE MEDS HELD. BED AT THE LOWEST POSITION, CALL LIGHT W/I REACH. PT IS A/O X4, PLEASANT AND COOPERATIVE WITH CARE. PT IS ABLE TO MAKE HER NEEDS KNOWN.
[2024-08-31 04:24] LABS: Hematocrit 27.8 % (33.0-51.0); Hemoglobin 9.1 g/dL (11.5-16.0)
[2024-08-31 04:41] VITALS: BP 112/60
[2024-08-31 04:50] LABS: Bun/Creatinine Ratio 25.5 (12.0-20.0); Calcium, Blood 9.1 mg/dL (8.5-10.1); Creatinine, Blood 0.51 mg/dL (0.40-1.00); Potassium, Blood 4.4 mmol/L (3.5-5.5)
[2024-08-31 07:10] VITALS: BP 104/48
[2024-08-31] MEDS ORDERED: ACE PO (14:05)
[2024-08-31] MEDS ORDERED: TRAMADOL PO (14:05)
[2024-08-31] MEDS ORDERED: LABE100 PO (14:06)
[2024-08-31] MEDS ORDERED: CUBICIN RF500 M1 IV (14:46)
[2024-08-31] MEDS ORDERED: DESV50 PO (14:47)
[2024-08-31] MEDS ORDERED: PREG50 PO (14:50)
--- NOTE | 2024-08-31 15:13 | NUR ---
CALLED BETTY HERNANDEZ TO GIVE REPORT AT 1510. SPOKE WITH RN ACCEPTING PT. NO FURTHER QUESTIONS AT THIS TIME. CALL BACK NUMBER PROVIDED.
--- NOTE | 2024-08-31 16:23 | NUR ---
DISCHARGE/SHIFT SUMMARY: PT A&O X4. PLEASANT AND COOPERATIVE WITH ALL CARE. PT RECEIVED DAILY ABX THIS SHIFT. PICC LINE DRESSING CHANGED THIS SHIFT BY BREAK RN. PT WORKED WITH OT/PT THIS SHIFT. PAIN PILL PROVIDED TO PT APPROX ONE HOUR PRIOR TO TRANSFER TO SNF FOR BACK PACK AND TO TOLERATE TRANSFER. ALL BELONGINGS AND DISCHARGE PACKET SENT WITH TRANSPORT. HARD SPRIPTS SENT IN PACKET. NO QUESTIONS AT TIME OF DISCHARGE. REPORT GIVEN TO RN AT R.
== END 2024-08-31 16:14 | DRG 95 ==
LOC: ER 17:26 → MEDS 17:27
PROVIDERS: Student in an Organized Health Care Education/Training Program; ADMIT Internal Medicine
DX: G06.2 Extradural and subdural abscess, unspecified (principal); E87.1 Hypo-osmolality and hyponatremia; M46.24 Osteomyelitis of vertebra, thoracic region; N17.9 Acute kidney failure, unspecified; F41.9 Anxiety disorder, unspecified; F32.A Depression, unspecified; I95.9 Hypotension, unspecified; M46.44 Discitis, unspecified, thoracic region; Z85.72 Personal history of non-Hodgkin lymphomas; Z86.14 Personal history of Methicillin resistant Staphylococcus aureus infection; K59.00 Constipation, unspecified; I10 Essential (primary) hypertension; D64.9 Anemia, unspecified; Z88.8 Allergy status to other drugs, medicaments and biological substances; Z86.19 Personal history of other infectious and parasitic diseases; Z79.899 Other long term (current) drug therapy; Z98.890 Other specified postprocedural states
CPT/HCPCS: 36415; 74176; 80048; 80053; 82550; 83735; 84100; 84425; 85014; 85018; 85025; 85651; 86140; 96361; 96365-59; 96375; 96376; 97162; 97165; 97530; 97535; 99284-25; A9270; G0378; J0878; J1171; J1650; J3010; J3370; J7030; J7040; J7050; J7120

== ENCOUNTER 2024-09-20 12:23 | Emergency (ER) | payer BC ==
[~2024-09-20] VITALS: Ht 294.6 cm; Wt 78.0 kg
[~2024-09-20 12:23] MED LIST changes: +ACE PO; +CUBICIN RF500 M1 IV; +DESV50 PO; +OXYC10ER PO; +PREG50 PO; +TRAMADOL PO
[2024-09-20 13:04] LABS: BASOPHILS ABSOLUTE AUTO 0.04 K/mm3 (0.00-0.23); BASOPHILS PERCENT AUTO 1 % (0-2); EOSINOPHILS PERCENT AUTO 3 % (0-6); Hematocrit 35.1 % (33.0-51.0); Hemoglobin 11.3 g/dL (11.5-16.0); IMMATURE GRAN ABSOLUTE AUTO 0.04 K/mm3 (0.00-0.10); IMMATURE GRAN PERCENT AUTO 1 % (0-1); LYMPHOCYTES ABSOLUTE AUTO 1.92 K/mm3 (0.84-5.20); LYMPHOCYTES PERCENT AUTO 27 % (21-46); MONOCYTES ABSOLUTE AUTO 0.39 K/mm3 (0.16-1.47); MONOCYTES PERCENT AUTO 6 % (4-13); Mean Corpuscular HGB 27.3 pg (26.0-34.0); Mean Corpuscular HGB Conc 32.2 g/dL (31.5-36.5); Mean Corpuscular Volume 85 fL (80-100); Mean Platelet Volume 8.4 fL (9.1-12.4); NEUTROPHILS ABSOLUTE AUTO 4.56 K/mm3 (1.96-9.15); NEUTROPHILS PERCENT AUTO 64 % (41-73); Platelet Count 470 K/mm3 (150-400); RDW Coefficient Variation 17.1 % (11.7-14.2); RDW Standard Deviation 53.5 fL (35.1-46.3); Red Blood Cell Count 4.14 M/mm3 (3.80-5.20); White Blood Cell Count 7.15 K/mm3 (4.00-11.30)
[2024-09-20 13:56] LABS: Albumin, Blood 3.1 g/dL (3.4-5.0); Albumin/Globulin Ratio 0.6 (0.8-1.8); Bilirubin, Total 0.3 mg/dL (0.1-1.0); Bun/Creatinine Ratio 24.9 (12.0-20.0); Calcium, Blood 9.4 mg/dL (8.5-10.1); Creatinine, Blood 0.48 mg/dL (0.40-1.00); Total Protein, Blood 8.1 g/dL (6.4-8.2)
[2024-09-20 15:47] LABS: Source, Urine Clean Catch
[2024-09-20 15:52] LABS: Appearance, Urine Hazy (Clear); Bilirubin, Urine Neg (Neg); Blood, Urine 1+ (Neg); Glucose Qualitative, Urine Neg (Neg); Ketones, Urine Neg (Neg); Leukocyte Esterase, Urine 3+ (Neg); Nitrite, Urine Neg (Neg); Protein, Urine 1+ (Neg); Specific Gravity, Urine 1.005 (1.003-1.022); Urobilinogen, Urine NORM (Normal)
[2024-09-20 16:07] LABS: Color, Urine Pale Yellow (P-Yellow); Red Blood Cells, Urine 0-2 /hpf (0-2); White Blood Cells, Urine 50-100 /hpf (0-5)
[2024-09-20 16:08] LABS: Bacteria Many /hpf; Squamous Epithelial Cells Many /hpf (Few); Transitional Epithelial Cells Rare /hpf (0-Rare); Yeast/Fungi Urine Few /hpf
[2024-09-20 16:38] VITALS: BP 109/84
== END 2024-09-20 16:32 | disposition home or self-care (01) ==
LOC: ER 12:23
PROVIDERS: Physician Assistant
DX: L30.9 Dermatitis, unspecified (principal); I10 Essential (primary) hypertension; Z85.72 Personal history of non-Hodgkin lymphomas; Z88.8 Allergy status to other drugs, medicaments and biological substances; Z79.899 Other long term (current) drug therapy
CPT/HCPCS: 51798; 80053; 81001; 85025; 87077; 87086; 87186; 99283-25

== ENCOUNTER 2024-09-29 23:00 | Day surgery (SDC) | payer BC ==
[~2024-09-29 23:00] MED LIST changes: +Lidocaine HCl 4% Cream 5 GM ONE
== END 2024-09-29 23:01 | disposition home or self-care (01) ==
LOC: WOUND 23:00
DX: L89.153 Pressure ulcer of sacral region, stage 3 (principal); L89.620 Pressure ulcer of left heel, unstageable; L97.822 Non-pressure chronic ulcer of other part of left lower leg with fat layer exposed; G60.9 Hereditary and idiopathic neuropathy, unspecified; C84.00 Mycosis fungoides, unspecified site; Z88.8 Allergy status to other drugs, medicaments and biological substances
CPT/HCPCS: A6213; A9270; G0463

== ENCOUNTER 2024-10-23 12:21 | Emergency (ER) | payer BC ==
[~2024-10-23] VITALS: Ht 165.1 cm; Wt 77.1 kg
[~2024-10-23 12:21] MED LIST changes: -Lidocaine HCl 4% Cream 5 GM ONE
[2024-10-23] MEDS ORDERED: MONDOXYNE NL100 MG PO (12:36)
[2024-10-23] MEDS ORDERED: Morphine Sulfate 4 MG/1 ML Injection IV ONE (12:45)
[2024-10-23] MEDS ORDERED: DiphenhydrAMINE HCl 50 MG/ML 1ML Vial IV ONE (13:05)
[2024-10-23 13:54] LABS: BASOPHILS ABSOLUTE AUTO 0.07 K/mm3 (0.00-0.23); BASOPHILS PERCENT AUTO 1 % (0-2); EOSINOPHILS ABSOLUTE AUTO 0.11 K/mm3 (0.00-0.68); EOSINOPHILS PERCENT AUTO 1 % (0-6); Hematocrit 35.0 % (33.0-51.0); Hemoglobin 11.7 g/dL (11.5-16.0); IMMATURE GRAN ABSOLUTE AUTO 0.08 K/mm3 (0.00-0.10); IMMATURE GRAN PERCENT AUTO 1 % (0-1); LYMPHOCYTES ABSOLUTE AUTO 2.71 K/mm3 (0.84-5.20); LYMPHOCYTES PERCENT AUTO 19 % (21-46); MONOCYTES ABSOLUTE AUTO 1.02 K/mm3 (0.16-1.47); MONOCYTES PERCENT AUTO 7 % (4-13); Mean Corpuscular HGB Conc 33.4 g/dL (31.5-36.5); Mean Corpuscular Volume 86 fL (80-100); NEUTROPHILS ABSOLUTE AUTO 10.08 K/mm3 (1.96-9.15); NEUTROPHILS PERCENT AUTO 72 % (41-73); NRBC ABSOLUTE 0.00 K/mm3 (0.00-0.02); NRBC Auto 0.0 /100 WBC (0.0-0.2); Platelet Count 381 K/mm3 (150-400); RDW Coefficient Variation 15.6 % (11.7-14.2); RDW Standard Deviation 49.2 fL (35.1-46.3)
[2024-10-23 13:58] LABS: Source, Urine Fem Cath
[2024-10-23 14:02] LABS: Bilirubin, Urine Neg (Neg); Color, Urine Yellow (P-Yellow); Glucose Qualitative, Urine Neg (Neg); Ketones, Urine Neg (Neg); Leukocyte Esterase, Urine 3+ (Neg); Protein, Urine 2+ (Neg); Specific Gravity, Urine 1.010 (1.003-1.022); Urobilinogen, Urine NORM (Normal)
[2024-10-23 14:23] LABS: Alanine Aminotransfer (ALT/SGP 17.0 U/L (12-78); Albumin, Blood 3.1 g/dL (3.4-5.0); Albumin/Globulin Ratio 0.7 (0.8-1.8); Anion Gap 9.0 mmol/L (3-11); Aspartate Aminotrans (AST/SGOT 16.0 U/L (12-37); Bilirubin, Total 0.3 mg/dL (0.1-1.0); Blood Urea Nitrogen 15.0 mg/dL (8-24); C-REACTIVE PROTEIN, EXT RANGE 0.565 mg/dL (0.000-0.300); CO2, Blood 27.0 mmol/L (21-32); Calcium, Blood 9.7 mg/dL (8.5-10.1); Chloride, Blood 100.0 mmol/L (98-108); Creatinine, Blood 0.51 mg/dL (0.40-1.00); Globulin, Blood 4.3 g/dL (2.2-4.0); Glucose, Blood 114.0 mg/dL (70-99); Magnesium, Blood 1.7 mg/dL (1.6-2.4); Potassium, Blood 3.9 mmol/L (3.5-5.5); Sodium, Blood 132.0 mmol/L (136-145); Total Protein, Blood 7.4 g/dL (6.4-8.2)
[2024-10-23] MEDS ORDERED: CefTRIAXone Sodium 1,000 MG in NS 50 ML IV ONE (15:00)
[2024-10-23] MEDS ORDERED: Trimethoprim/Sulfamethoxazole DS Tab PO ONE (15:20)
[2024-10-23] MEDS ORDERED: SULTRIDS PO (15:22)
[2024-10-23] MEDS ORDERED: ONDA4ODT MM (15:22)
[2024-10-23 16:45] VITALS: BP 150/82
== END 2024-10-23 17:06 | disposition home or self-care (01) ==
LOC: ER 12:21
PROVIDERS: Student in an Organized Health Care Education/Training Program
DX: N12 Tubulo-interstitial nephritis, not specified as acute or chronic (principal); R55 Syncope and collapse; E86.0 Dehydration; D72.829 Elevated white blood cell count, unspecified; R11.2 Nausea with vomiting, unspecified; I10 Essential (primary) hypertension; Z86.19 Personal history of other infectious and parasitic diseases; Z88.8 Allergy status to other drugs, medicaments and biological substances; Z91.041 Radiographic dye allergy status; Z79.899 Other long term (current) drug therapy
CPT/HCPCS: 36415; 71046; 74177; 80053; 81001; 83605; 83735; 83880; 84484; 85025; 85651; 86140; 87040; 87086; 93005; 93010; 96374-59; 96375; 99285-25; A9270; J1200; J2270; J2919; J7120; Q9967

== ENCOUNTER 2024-11-02 02:10 | Day surgery (SDC) | payer BC ==
[~2024-11-02 02:10] MED LIST changes: +MONDOXYNE NL100 MG PO; +ONDA4ODT MM; +SULTRIDS PO
[2024-11-02] MEDS ORDERED: Lidocaine HCl 4% Cream 5 GM ONE (08:28)
== END 2024-11-02 23:00 ==
LOC: WOUND 02:10
DX: L89.154 Pressure ulcer of sacral region, stage 4 (principal); L89.623 Pressure ulcer of left heel, stage 3; G60.9 Hereditary and idiopathic neuropathy, unspecified; C84.00 Mycosis fungoides, unspecified site; Z88.8 Allergy status to other drugs, medicaments and biological substances; Z91.041 Radiographic dye allergy status
CPT/HCPCS: A6213; A9270

== ENCOUNTER 2024-11-16 03:35 | Day surgery (SDC) | payer BC ==
[2024-11-16] MEDS ORDERED: Lidocaine HCl 4% Cream 5 GM ONE (08:48)
== END 2024-11-16 23:00 | disposition home or self-care (01) ==
LOC: WOUND 03:35
DX: L89.623 Pressure ulcer of left heel, stage 3 (principal); L89.154 Pressure ulcer of sacral region, stage 4; L97.822 Non-pressure chronic ulcer of other part of left lower leg with fat layer exposed; G60.9 Hereditary and idiopathic neuropathy, unspecified; C84.00 Mycosis fungoides, unspecified site
CPT/HCPCS: A6213; A9270

== ENCOUNTER → 2025-01-01 | Outpatient (CLI) | payer BC ==
[2025-01-01 14:26] LABS: BASOPHILS ABSOLUTE AUTO 0.05 K/mm3 (0.00-0.23); BASOPHILS PERCENT AUTO 1 % (0-2); EOSINOPHILS ABSOLUTE AUTO 0.14 K/mm3 (0.00-0.68); EOSINOPHILS PERCENT AUTO 3 % (0-6); Hematocrit 25.3 % (33.0-51.0); Hemoglobin 8.2 g/dL (11.5-16.0); IMMATURE GRAN ABSOLUTE AUTO 0.02 K/mm3 (0.00-0.10); IMMATURE GRAN PERCENT AUTO 0 % (0-1); LYMPHOCYTES ABSOLUTE AUTO 2.42 K/mm3 (0.84-5.20); LYMPHOCYTES PERCENT AUTO 43 % (21-46); MONOCYTES ABSOLUTE AUTO 0.63 K/mm3 (0.16-1.47); MONOCYTES PERCENT AUTO 11 % (4-13); Mean Corpuscular HGB Conc 32.4 g/dL (31.5-36.5); Mean Corpuscular Volume 88 fL (80-100); NEUTROPHILS ABSOLUTE AUTO 2.41 K/mm3 (1.96-9.15); NEUTROPHILS PERCENT AUTO 42 % (41-73); NRBC ABSOLUTE 0.00 K/mm3 (0.00-0.02); NRBC Auto 0.0 /100 WBC (0.0-0.2); Platelet Count 317 K/mm3 (150-400); RDW Coefficient Variation 15.0 % (11.7-14.2); RDW Standard Deviation 48.6 fL (35.1-46.3)
[2025-01-01 14:40] LABS: Alanine Aminotransfer (ALT/SGP 22 U/L (12-78); Albumin, Blood 3.3 g/dL (3.4-5.0); Albumin/Globulin Ratio 0.8 (0.8-1.8); Anion Gap 9 mmol/L (3-11); Aspartate Aminotrans (AST/SGOT 19 U/L (12-37); Bilirubin, Total 0.4 mg/dL (0.1-1.0); Blood Urea Nitrogen 17 mg/dL (8-24); CO2, Blood 27 mmol/L (21-32); Calcium, Blood 9.0 mg/dL (8.5-10.1); Chloride, Blood 100 mmol/L (98-108); Creatinine, Blood 0.88 mg/dL (0.40-1.00); Globulin, Blood 4.1 g/dL (2.2-4.0); Glucose, Blood 99 mg/dL (70-99); Potassium, Blood 3.7 mmol/L (3.5-5.5); Sodium, Blood 132 mmol/L (136-145); Total Protein, Blood 7.4 g/dL (6.4-8.2); Vancomycin, Trough 17.0 ug/mL (5.0-10.0)
== END | disposition home or self-care (01) ==
LOC: LAB 10:24 → LAB SHORT 10:24
PROVIDERS: Internal Medicine Infectious Disease
DX: M48.04 Spinal stenosis, thoracic region (principal); Z79.899 Other long term (current) drug therapy
CPT/HCPCS: 80053; 80202; 85025; 85651

== ENCOUNTER → 2025-01-08 | Outpatient (CLI) | payer BC ==
[2025-01-08 15:20] LABS: BASOPHILS ABSOLUTE AUTO 0.05 K/mm3 (0.00-0.23); BASOPHILS PERCENT AUTO 1 % (0-2); EOSINOPHILS ABSOLUTE AUTO 0.18 K/mm3 (0.00-0.68); EOSINOPHILS PERCENT AUTO 3 % (0-6); Hematocrit 26.4 % (33.0-51.0); Hemoglobin 8.6 g/dL (11.5-16.0); IMMATURE GRAN ABSOLUTE AUTO 0.01 K/mm3 (0.00-0.10); IMMATURE GRAN PERCENT AUTO 0 % (0-1); LYMPHOCYTES ABSOLUTE AUTO 2.55 K/mm3 (0.84-5.20); LYMPHOCYTES PERCENT AUTO 49 % (21-46); MONOCYTES ABSOLUTE AUTO 0.51 K/mm3 (0.16-1.47); MONOCYTES PERCENT AUTO 10 % (4-13); Mean Corpuscular HGB Conc 32.6 g/dL (31.5-36.5); Mean Corpuscular Volume 88 fL (80-100); NEUTROPHILS ABSOLUTE AUTO 1.94 K/mm3 (1.96-9.15); NEUTROPHILS PERCENT AUTO 37 % (41-73); NRBC ABSOLUTE 0.00 K/mm3 (0.00-0.02); NRBC Auto 0.0 /100 WBC (0.0-0.2); Platelet Count 316 K/mm3 (150-400); RDW Coefficient Variation 14.8 % (11.7-14.2); RDW Standard Deviation 47.5 fL (35.1-46.3)
[2025-01-08 18:38] LABS: Alanine Aminotransfer (ALT/SGP 19 U/L (12-78); Albumin, Blood 3.3 g/dL (3.4-5.0); Albumin/Globulin Ratio 0.8 (0.8-1.8); Anion Gap 13 mmol/L (3-11); Aspartate Aminotrans (AST/SGOT 12 U/L (12-37); Bilirubin, Total 0.5 mg/dL (0.1-1.0); Blood Urea Nitrogen 12 mg/dL (8-24); CO2, Blood 22 mmol/L (21-32); Calcium, Blood 8.9 mg/dL (8.5-10.1); Chloride, Blood 101 mmol/L (98-108); Creatinine, Blood 0.73 mg/dL (0.40-1.00); Globulin, Blood 4.1 g/dL (2.2-4.0); Glucose, Blood 105 mg/dL (70-99); Potassium, Blood 3.2 mmol/L (3.5-5.5); Sodium, Blood 133 mmol/L (136-145); Total Protein, Blood 7.4 g/dL (6.4-8.2); Vancomycin, Trough 15.0 ug/mL (5.0-10.0)
== END ==
LOC: LAB SHORT 10:25 → LAB 10:25
PROVIDERS: Internal Medicine Infectious Disease
DX: M48.04 Spinal stenosis, thoracic region (principal); Z79.899 Other long term (current) drug therapy
CPT/HCPCS: 80053; 80202; 85025; 85651

== ENCOUNTER 2025-01-15 12:36 | Emergency (ER) | payer BC ==
[~2025-01-15] VITALS: Ht 165.1 cm; Wt 76.7 kg
[2025-01-15 13:31] VITALS: BP 177/101
[2025-01-15] MEDS ORDERED: Alteplase Recombinant 2 MG / Vial IV ONE (13:35)
== END 2025-01-15 14:40 | disposition home or self-care (01) ==
LOC: ER 12:36
DX: T82.594A Other mechanical complication of infusion catheter, initial encounter (principal); I10 Essential (primary) hypertension; Z88.8 Allergy status to other drugs, medicaments and biological substances; Z91.041 Radiographic dye allergy status; Z79.2 Long term (current) use of antibiotics; Z79.891 Long term (current) use of opiate analgesic
CPT/HCPCS: 71045; 99283-25; J2997

== ENCOUNTER → 2025-01-15 | Outpatient (CLI) | payer BC ==
[2025-01-15 16:12] LABS: BASOPHILS ABSOLUTE AUTO 0.05 K/mm3 (0.00-0.23); BASOPHILS PERCENT AUTO 1 % (0-2); EOSINOPHILS ABSOLUTE AUTO 0.15 K/mm3 (0.00-0.68); EOSINOPHILS PERCENT AUTO 2 % (0-6); Hematocrit 24.4 % (33.0-51.0); Hemoglobin 8.5 g/dL (11.5-16.0); IMMATURE GRAN ABSOLUTE AUTO 0.03 K/mm3 (0.00-0.10); IMMATURE GRAN PERCENT AUTO 0 % (0-1); LYMPHOCYTES ABSOLUTE AUTO 3.35 K/mm3 (0.84-5.20); LYMPHOCYTES PERCENT AUTO 46 % (21-46); MONOCYTES ABSOLUTE AUTO 0.41 K/mm3 (0.16-1.47); MONOCYTES PERCENT AUTO 6 % (4-13); Mean Corpuscular HGB Conc 34.8 g/dL (31.5-36.5); Mean Corpuscular Volume 87 fL (80-100); NEUTROPHILS ABSOLUTE AUTO 3.24 K/mm3 (1.96-9.15); NEUTROPHILS PERCENT AUTO 45 % (41-73); NRBC ABSOLUTE 0.00 K/mm3 (0.00-0.02); NRBC Auto 0.0 /100 WBC (0.0-0.2); Platelet Count 294 K/mm3 (150-400); RDW Coefficient Variation 14.4 % (11.7-14.2); RDW Standard Deviation 45.3 fL (35.1-46.3)
[2025-01-15 18:31] LABS: C-REACTIVE PROTEIN, EXT RANGE <0.290 mg/dL (0.000-0.300)
[2025-01-15 18:33] LABS: Alanine Aminotransfer (ALT/SGP 14 U/L (12-78); Albumin, Blood 3.2 g/dL (3.4-5.0); Albumin/Globulin Ratio 0.9 (0.8-1.8); Anion Gap 10 mmol/L (3-11); Aspartate Aminotrans (AST/SGOT 8 U/L (12-37); Bilirubin, Total 0.3 mg/dL (0.1-1.0); Blood Urea Nitrogen 12 mg/dL (8-24); CO2, Blood 25 mmol/L (21-32); Calcium, Blood 8.8 mg/dL (8.5-10.1); Chloride, Blood 103 mmol/L (98-108); Creatinine, Blood 0.70 mg/dL (0.40-1.00); Globulin, Blood 3.7 g/dL (2.2-4.0); Glucose, Blood 100 mg/dL (70-99); Potassium, Blood 2.8 mmol/L (3.5-5.5); Sodium, Blood 135 mmol/L (136-145); Total Protein, Blood 6.9 g/dL (6.4-8.2); Vancomycin, Trough 16.5 ug/mL (5.0-10.0)
== END ==
LOC: LAB SHORT 11:59 → LAB 11:59
PROVIDERS: Internal Medicine Infectious Disease
DX: M46.24 Osteomyelitis of vertebra, thoracic region (principal); Z79.899 Other long term (current) drug therapy
CPT/HCPCS: 80053; 80202; 85025; 85651; 86140

== ENCOUNTER → 2025-01-22 | Outpatient (CLI) | payer BC ==
[2025-01-22 13:49] LABS: BASOPHILS ABSOLUTE AUTO 0.04 K/mm3 (0.00-0.23); BASOPHILS PERCENT AUTO 1 % (0-2); EOSINOPHILS ABSOLUTE AUTO 0.16 K/mm3 (0.00-0.68); EOSINOPHILS PERCENT AUTO 2 % (0-6); Hematocrit 29.9 % (33.0-51.0); Hemoglobin 9.9 g/dL (11.5-16.0); IMMATURE GRAN ABSOLUTE AUTO 0.01 K/mm3 (0.00-0.10); IMMATURE GRAN PERCENT AUTO 0 % (0-1); LYMPHOCYTES ABSOLUTE AUTO 3.51 K/mm3 (0.84-5.20); LYMPHOCYTES PERCENT AUTO 48 % (21-46); MONOCYTES ABSOLUTE AUTO 0.67 K/mm3 (0.16-1.47); MONOCYTES PERCENT AUTO 9 % (4-13); Mean Corpuscular HGB Conc 33.1 g/dL (31.5-36.5); Mean Corpuscular Volume 91 fL (80-100); NEUTROPHILS ABSOLUTE AUTO 3.00 K/mm3 (1.96-9.15); NEUTROPHILS PERCENT AUTO 41 % (41-73); NRBC ABSOLUTE 0.00 K/mm3 (0.00-0.02); NRBC Auto 0.0 /100 WBC (0.0-0.2); Platelet Count 335 K/mm3 (150-400); RDW Coefficient Variation 15.4 % (11.7-14.2); RDW Standard Deviation 51.2 fL (35.1-46.3)
[2025-01-22 15:36] LABS: C-REACTIVE PROTEIN, EXT RANGE <0.290 mg/dL (0.000-0.300)
[2025-01-22 15:41] LABS: Alanine Aminotransfer (ALT/SGP 15 U/L (12-78); Albumin, Blood 3.3 g/dL (3.4-5.0); Albumin/Globulin Ratio 0.8 (0.8-1.8); Anion Gap 6 mmol/L (3-11); Aspartate Aminotrans (AST/SGOT 8 U/L (12-37); Bilirubin, Total 0.2 mg/dL (0.1-1.0); Blood Urea Nitrogen 12 mg/dL (8-24); CO2, Blood 28 mmol/L (21-32); Calcium, Blood 9.2 mg/dL (8.5-10.1); Chloride, Blood 104 mmol/L (98-108); Creatinine, Blood 0.72 mg/dL (0.40-1.00); Globulin, Blood 4.2 g/dL (2.2-4.0); Glucose, Blood 94 mg/dL (70-99); Potassium, Blood 4.1 mmol/L (3.5-5.5); Sodium, Blood 134 mmol/L (136-145); Total Protein, Blood 7.5 g/dL (6.4-8.2); Vancomycin, Trough 16.4 ug/mL (5.0-10.0)
== END ==
LOC: LAB 13:11 → LAB SHORT 13:11
PROVIDERS: Internal Medicine Infectious Disease
DX: M46.24 Osteomyelitis of vertebra, thoracic region (principal); Z79.2 Long term (current) use of antibiotics; B95.62 Methicillin resistant Staphylococcus aureus infection as the cause of diseases classified elsewhere; M46.44 Discitis, unspecified, thoracic region
CPT/HCPCS: 80053; 80202; 85025; 85651; 86140

== ENCOUNTER → 2025-01-29 | Outpatient (CLI) | payer BC ==
[2025-01-29 13:00] LABS: BASOPHILS ABSOLUTE AUTO 0.04 K/mm3 (0.00-0.23); BASOPHILS PERCENT AUTO 1 % (0-2); EOSINOPHILS ABSOLUTE AUTO 0.17 K/mm3 (0.00-0.68); EOSINOPHILS PERCENT AUTO 3 % (0-6); Hematocrit 29.4 % (33.0-51.0); Hemoglobin 9.7 g/dL (11.5-16.0); IMMATURE GRAN ABSOLUTE AUTO 0.01 K/mm3 (0.00-0.10); IMMATURE GRAN PERCENT AUTO 0 % (0-1); LYMPHOCYTES ABSOLUTE AUTO 3.32 K/mm3 (0.84-5.20); LYMPHOCYTES PERCENT AUTO 56 % (21-46); MONOCYTES ABSOLUTE AUTO 0.52 K/mm3 (0.16-1.47); MONOCYTES PERCENT AUTO 9 % (4-13); Mean Corpuscular HGB Conc 33.0 g/dL (31.5-36.5); Mean Corpuscular Volume 91 fL (80-100); NEUTROPHILS ABSOLUTE AUTO 1.86 K/mm3 (1.96-9.15); NEUTROPHILS PERCENT AUTO 31 % (41-73); NRBC ABSOLUTE 0.00 K/mm3 (0.00-0.02); NRBC Auto 0.0 /100 WBC (0.0-0.2); Platelet Count 314 K/mm3 (150-400); RDW Coefficient Variation 15.1 % (11.7-14.2); RDW Standard Deviation 50.4 fL (35.1-46.3)
[2025-01-29 13:02] LABS: Alanine Aminotransfer (ALT/SGP 20 U/L (12-78); Albumin, Blood 3.2 g/dL (3.4-5.0); Albumin/Globulin Ratio 0.8 (0.8-1.8); Anion Gap 9 mmol/L (3-11); Aspartate Aminotrans (AST/SGOT 23 U/L (12-37); Bilirubin, Total 0.3 mg/dL (0.1-1.0); Blood Urea Nitrogen 12 mg/dL (8-24); C-REACTIVE PROTEIN, EXT RANGE <0.290 mg/dL (0.000-0.300); CO2, Blood 25 mmol/L (21-32); Calcium, Blood 9.2 mg/dL (8.5-10.1); Chloride, Blood 101 mmol/L (98-108); Creatinine, Blood 0.51 mg/dL (0.40-1.00); Globulin, Blood 4.1 g/dL (2.2-4.0); Glucose, Blood 98 mg/dL (70-99); Potassium, Blood 5.0 mmol/L (3.5-5.5); Sodium, Blood 130 mmol/L (136-145); Total Protein, Blood 7.3 g/dL (6.4-8.2)
[2025-01-29 13:19] LABS: Vancomycin, Trough 14.4 ug/mL (5.0-10.0)
== END ==
LOC: LAB 12:41 → LAB SHORT 12:41
PROVIDERS: Internal Medicine Infectious Disease
DX: M46.24 Osteomyelitis of vertebra, thoracic region (principal); Z79.899 Other long term (current) drug therapy; M46.36 Infection of intervertebral disc (pyogenic), lumbar region
CPT/HCPCS: 80053; 80202; 85025; 85651; 86140

== ENCOUNTER → 2025-02-05 | Outpatient (CLI) | payer BC ==
[2025-02-05 15:08] LABS: BASOPHILS ABSOLUTE AUTO 0.03 K/mm3 (0.00-0.23); BASOPHILS PERCENT AUTO 1 % (0-2); EOSINOPHILS ABSOLUTE AUTO 0.12 K/mm3 (0.00-0.68); EOSINOPHILS PERCENT AUTO 2 % (0-6); Hematocrit 28.9 % (33.0-51.0); Hemoglobin 9.4 g/dL (11.5-16.0); IMMATURE GRAN ABSOLUTE AUTO 0.01 K/mm3 (0.00-0.10); IMMATURE GRAN PERCENT AUTO 0 % (0-1); LYMPHOCYTES ABSOLUTE AUTO 3.08 K/mm3 (0.84-5.20); LYMPHOCYTES PERCENT AUTO 53 % (21-46); MONOCYTES ABSOLUTE AUTO 0.47 K/mm3 (0.16-1.47); MONOCYTES PERCENT AUTO 8 % (4-13); Mean Corpuscular HGB Conc 32.5 g/dL (31.5-36.5); Mean Corpuscular Volume 92 fL (80-100); NEUTROPHILS ABSOLUTE AUTO 2.13 K/mm3 (1.96-9.15); NEUTROPHILS PERCENT AUTO 37 % (41-73); NRBC ABSOLUTE 0.00 K/mm3 (0.00-0.02); NRBC Auto 0.0 /100 WBC (0.0-0.2); Platelet Count 311 K/mm3 (150-400); RDW Coefficient Variation 15.4 % (11.7-14.2); RDW Standard Deviation 52.0 fL (35.1-46.3)
[2025-02-05 16:22] LABS: C-REACTIVE PROTEIN, EXT RANGE <0.290 mg/dL (0.000-0.300)
[2025-02-05 16:24] LABS: Alanine Aminotransfer (ALT/SGP 16 U/L (12-78); Albumin, Blood 3.1 g/dL (3.4-5.0); Albumin/Globulin Ratio 0.8 (0.8-1.8); Anion Gap 8 mmol/L (3-11); Aspartate Aminotrans (AST/SGOT 9 U/L (12-37); Bilirubin, Total 0.2 mg/dL (0.1-1.0); Blood Urea Nitrogen 13 mg/dL (8-24); CO2, Blood 26 mmol/L (21-32); Calcium, Blood 8.8 mg/dL (8.5-10.1); Chloride, Blood 105 mmol/L (98-108); Creatinine, Blood 0.56 mg/dL (0.40-1.00); Globulin, Blood 3.9 g/dL (2.2-4.0); Glucose, Blood 115 mg/dL (70-99); Potassium, Blood 3.8 mmol/L (3.5-5.5); Sodium, Blood 135 mmol/L (136-145); Total Protein, Blood 7.0 g/dL (6.4-8.2); Vancomycin, Trough 15.8 ug/mL (5.0-10.0)
== END ==
LOC: LAB 10:14 → LAB SHORT 10:14
PROVIDERS: Internal Medicine Infectious Disease
DX: M46.24 Osteomyelitis of vertebra, thoracic region (principal); Z79.899 Other long term (current) drug therapy
CPT/HCPCS: 80053; 80202; 85025; 85651; 86140

== ENCOUNTER → 2025-02-19 | Outpatient (CLI) | payer BC ==
[2025-02-19 18:53] LABS: BASOPHILS ABSOLUTE AUTO 0.03 K/mm3 (0.00-0.23); BASOPHILS PERCENT AUTO 1 % (0-2); EOSINOPHILS ABSOLUTE AUTO 0.13 K/mm3 (0.00-0.68); EOSINOPHILS PERCENT AUTO 2 % (0-6); Hematocrit 29.9 % (33.0-51.0); Hemoglobin 9.7 g/dL (11.5-16.0); IMMATURE GRAN ABSOLUTE AUTO 0.01 K/mm3 (0.00-0.10); IMMATURE GRAN PERCENT AUTO 0 % (0-1); LYMPHOCYTES ABSOLUTE AUTO 2.59 K/mm3 (0.84-5.20); LYMPHOCYTES PERCENT AUTO 48 % (21-46); MONOCYTES ABSOLUTE AUTO 0.47 K/mm3 (0.16-1.47); MONOCYTES PERCENT AUTO 9 % (4-13); Mean Corpuscular HGB Conc 32.4 g/dL (31.5-36.5); Mean Corpuscular Volume 92 fL (80-100); NEUTROPHILS ABSOLUTE AUTO 2.16 K/mm3 (1.96-9.15); NEUTROPHILS PERCENT AUTO 40 % (41-73); NRBC ABSOLUTE 0.00 K/mm3 (0.00-0.02); NRBC Auto 0.0 /100 WBC (0.0-0.2); Platelet Count 260 K/mm3 (150-400); RDW Coefficient Variation 15.5 % (11.7-14.2); RDW Standard Deviation 52.4 fL (35.1-46.3)
[2025-02-19 19:48] LABS: Alanine Aminotransfer (ALT/SGP 16 U/L (12-78); Albumin, Blood 3.2 g/dL (3.4-5.0); Albumin/Globulin Ratio 0.9 (0.8-1.8); Anion Gap 6 mmol/L (3-11); Aspartate Aminotrans (AST/SGOT 9 U/L (12-37); Bilirubin, Total 0.3 mg/dL (0.1-1.0); Blood Urea Nitrogen 18 mg/dL (8-24); CO2, Blood 27 mmol/L (21-32); Calcium, Blood 9.2 mg/dL (8.5-10.1); Chloride, Blood 108 mmol/L (98-108); Creatinine, Blood 0.59 mg/dL (0.40-1.00); Globulin, Blood 3.6 g/dL (2.2-4.0); Glucose, Blood 98 mg/dL (70-99); Potassium, Blood 4.2 mmol/L (3.5-5.5); Sodium, Blood 137 mmol/L (136-145); Total Protein, Blood 6.8 g/dL (6.4-8.2); Vancomycin, Trough 15.7 ug/mL (5.0-10.0)
== END ==
LOC: LAB 17:08 → LAB SHORT 17:08
PROVIDERS: Internal Medicine Infectious Disease
DX: M46.24 Osteomyelitis of vertebra, thoracic region (principal); Z79.899 Other long term (current) drug therapy
CPT/HCPCS: 80053; 80202; 85025; 85651

== ENCOUNTER → 2025-02-26 | Outpatient (CLI) | payer BC ==
[2025-02-26 14:15] LABS: BASOPHILS ABSOLUTE AUTO 0.02 K/mm3 (0.00-0.23); BASOPHILS PERCENT AUTO 0 % (0-2); EOSINOPHILS ABSOLUTE AUTO 0.11 K/mm3 (0.00-0.68); EOSINOPHILS PERCENT AUTO 2 % (0-6); Hematocrit 29.0 % (33.0-51.0); Hemoglobin 9.4 g/dL (11.5-16.0); IMMATURE GRAN ABSOLUTE AUTO 0.00 K/mm3 (0.00-0.10); IMMATURE GRAN PERCENT AUTO 0 % (0-1); LYMPHOCYTES ABSOLUTE AUTO 2.86 K/mm3 (0.84-5.20); LYMPHOCYTES PERCENT AUTO 55 % (21-46); MONOCYTES ABSOLUTE AUTO 0.44 K/mm3 (0.16-1.47); MONOCYTES PERCENT AUTO 9 % (4-13); Mean Corpuscular HGB Conc 32.4 g/dL (31.5-36.5); Mean Corpuscular Volume 92 fL (80-100); NEUTROPHILS ABSOLUTE AUTO 1.76 K/mm3 (1.96-9.15); NEUTROPHILS PERCENT AUTO 34 % (41-73); NRBC ABSOLUTE 0.00 K/mm3 (0.00-0.02); NRBC Auto 0.0 /100 WBC (0.0-0.2); Platelet Count 256 K/mm3 (150-400); RDW Coefficient Variation 15.4 % (11.7-14.2); RDW Standard Deviation 52.1 fL (35.1-46.3)
[2025-02-26 15:10] LABS: C-REACTIVE PROTEIN, EXT RANGE <0.290 mg/dL (0.000-0.300)
[2025-02-26 15:37] LABS: Alanine Aminotransfer (ALT/SGP 15 U/L (12-78); Albumin, Blood 3.1 g/dL (3.4-5.0); Albumin/Globulin Ratio 0.9 (0.8-1.8); Anion Gap 5 mmol/L (3-11); Aspartate Aminotrans (AST/SGOT 9 U/L (12-37); Bilirubin, Total 0.3 mg/dL (0.1-1.0); Blood Urea Nitrogen 13 mg/dL (8-24); CO2, Blood 29 mmol/L (21-32); Calcium, Blood 9.1 mg/dL (8.5-10.1); Chloride, Blood 108 mmol/L (98-108); Creatinine, Blood 0.51 mg/dL (0.40-1.00); Globulin, Blood 3.5 g/dL (2.2-4.0); Glucose, Blood 94 mg/dL (70-99); Potassium, Blood 3.7 mmol/L (3.5-5.5); Sodium, Blood 138 mmol/L (136-145); Total Protein, Blood 6.6 g/dL (6.4-8.2)
== END ==
LOC: LAB 13:50 → LAB SHORT 13:50
PROVIDERS: Family Medicine
DX: D51.8 Other vitamin B12 deficiency anemias (principal); M46.24 Osteomyelitis of vertebra, thoracic region; Z79.2 Long term (current) use of antibiotics; B95.62 Methicillin resistant Staphylococcus aureus infection as the cause of diseases classified elsewhere
CPT/HCPCS: 80053; 82607; 85025; 85651; 86140

== ENCOUNTER → 2025-02-28 | Outpatient (CLI) | payer BC ==
[2025-02-28 16:01] LABS: Vancomycin, Trough 12.9 ug/mL (5.0-10.0)
== END ==
LOC: LAB 09:42 → LAB SHORT 09:42
PROVIDERS: Internal Medicine Infectious Disease
DX: M46.24 Osteomyelitis of vertebra, thoracic region (principal)
CPT/HCPCS: 80202